=== PATIENT | female | born 1945 | race Caucasian/White ===

== ENCOUNTER 2017-08-19 08:16 | Outpatient (CLI) | payer MEDICARE, OTHER | END 2017-08-19 08:17 | disposition home or self-care (01) | LOC: DI 08:16 | PROVIDERS: ATTEND Internal Medicine | DX: I48.91 Unspecified atrial fibrillation (principal); I08.1 Rheumatic disorders of both mitral and tricuspid valves | CPT/HCPCS: 93306 ==

== ENCOUNTER 2017-11-04 14:26 | Outpatient (CLI) | payer MEDICARE, OTHER | END 2017-11-04 14:27 | disposition home or self-care (01) | LOC: LAB.F 14:26 → LAB 14:27 | PROVIDERS: ATTEND Nurse Practitioner Family | DX: I48.2 Chronic atrial fibrillation (principal) | CPT/HCPCS: 36415; 82565 ==

== ENCOUNTER 2017-11-24 09:05 | Outpatient (CLI) | payer MEDICARE, OTHER | END 2017-11-24 09:06 | disposition home or self-care (01) | LOC: LAB 09:05 | PROVIDERS: ATTEND Nurse Practitioner Family | DX: I48.2 Chronic atrial fibrillation (principal) | CPT/HCPCS: 85610 ==

== ENCOUNTER 2017-11-28 09:17 | Outpatient (CLI) | payer MEDICARE, OTHER | END 2017-11-28 09:18 | disposition home or self-care (01) | LOC: LAB 09:17 | PROVIDERS: ATTEND Nurse Practitioner Family | DX: I48.2 Chronic atrial fibrillation (principal) | CPT/HCPCS: 85610 ==

== ENCOUNTER 2017-12-02 15:03 | Outpatient (CLI) | payer MEDICARE, OTHER | END 2017-12-02 15:04 | disposition home or self-care (01) | LOC: LAB 15:03 | PROVIDERS: ATTEND Nurse Practitioner Family | DX: I48.2 Chronic atrial fibrillation (principal) | CPT/HCPCS: 85610 ==

== ENCOUNTER 2017-12-06 13:17 | Outpatient (CLI) | payer MEDICARE, OTHER | END 2017-12-06 13:18 | disposition home or self-care (01) | LOC: LAB 13:17 | PROVIDERS: ATTEND Nurse Practitioner Family | DX: I48.2 Chronic atrial fibrillation (principal) | CPT/HCPCS: 85610 ==

== ENCOUNTER 2017-12-09 10:24 | Outpatient (CLI) | payer MEDICARE, OTHER | END 2017-12-09 10:25 | disposition home or self-care (01) | LOC: LAB 10:24 | PROVIDERS: ATTEND Nurse Practitioner Family | DX: I48.2 Chronic atrial fibrillation (principal) | CPT/HCPCS: 85610 ==

== ENCOUNTER 2017-12-14 09:53 | Outpatient (CLI) | payer MEDICARE, OTHER | END 2017-12-14 09:54 | disposition home or self-care (01) | LOC: LAB 09:53 | PROVIDERS: ATTEND Nurse Practitioner Family | DX: I48.2 Chronic atrial fibrillation (principal) | CPT/HCPCS: 85610 ==

== ENCOUNTER 2017-12-20 09:57 | Outpatient (CLI) | payer MEDICARE, OTHER | END 2017-12-20 09:58 | disposition home or self-care (01) | LOC: LAB 09:57 | PROVIDERS: ATTEND Nurse Practitioner Family | DX: I48.2 Chronic atrial fibrillation (principal) | CPT/HCPCS: 85610 ==

== ENCOUNTER 2018-01-03 11:41 | Outpatient (CLI) | payer MEDICARE, OTHER | END 2018-01-03 11:42 | disposition home or self-care (01) | LOC: LAB 11:41 | PROVIDERS: ATTEND Nurse Practitioner Family | DX: I48.2 Chronic atrial fibrillation (principal) | CPT/HCPCS: 85610 ==

== ENCOUNTER 2018-01-17 11:21 | Outpatient (CLI) | payer MEDICARE, OTHER | END 2018-01-17 11:22 | disposition home or self-care (01) | LOC: LAB 11:21 | PROVIDERS: ATTEND Nurse Practitioner Family | DX: I48.2 Chronic atrial fibrillation (principal) | CPT/HCPCS: 85610 ==

== ENCOUNTER 2018-01-31 13:27 | Outpatient (CLI) | payer MEDICARE, OTHER | END 2018-01-31 13:28 | disposition home or self-care (01) | LOC: LAB 13:27 | PROVIDERS: ATTEND Nurse Practitioner Family | DX: I48.2 Chronic atrial fibrillation (principal) | CPT/HCPCS: 85610 ==

== ENCOUNTER 2018-02-14 13:02 | Outpatient (CLI) | payer MEDICARE, OTHER | END 2018-02-14 13:03 | disposition home or self-care (01) | LOC: LAB 13:02 | PROVIDERS: ATTEND Nurse Practitioner Family | DX: I48.2 Chronic atrial fibrillation (principal) | CPT/HCPCS: 85610 ==

== ENCOUNTER 2018-02-28 07:18 | Outpatient (CLI) | payer MEDICARE, OTHER | END 2018-02-28 07:19 | disposition home or self-care (01) | LOC: LAB 07:18 | PROVIDERS: ATTEND Nurse Practitioner Family | DX: I48.2 Chronic atrial fibrillation (principal) | CPT/HCPCS: 85610 ==

== ENCOUNTER 2018-03-14 11:44 | Outpatient (CLI) | payer MEDICARE, OTHER | END 2018-03-14 11:45 | disposition home or self-care (01) | LOC: LAB 11:44 | PROVIDERS: ATTEND Nurse Practitioner Family | DX: I48.2 Chronic atrial fibrillation (principal) | CPT/HCPCS: 85610 ==

== ENCOUNTER 2018-03-28 12:47 | Outpatient (CLI) | payer MEDICARE, OTHER | END 2018-03-28 12:48 | disposition home or self-care (01) | LOC: LAB 12:47 | PROVIDERS: ATTEND Nurse Practitioner Family | DX: I48.2 Chronic atrial fibrillation (principal) | CPT/HCPCS: 85610 ==

== ENCOUNTER 2018-04-18 09:34 | Outpatient (CLI) | payer MEDICARE, OTHER | END 2018-04-18 09:35 | disposition home or self-care (01) | LOC: LAB 09:34 | PROVIDERS: ATTEND Nurse Practitioner Family | DX: I48.2 Chronic atrial fibrillation (principal) | CPT/HCPCS: 85610 ==

== ENCOUNTER 2018-06-06 11:26 | Outpatient (CLI) | payer MEDICARE, OTHER ==
[2018-06-06 12:18] LABS: PT - PROTHROMBIN TIME 32.7 secs (9.9-12.6)
== END 2018-06-06 11:27 | disposition home or self-care (01) ==
LOC: LAB 11:26
PROVIDERS: ATTEND Nurse Practitioner Family
DX: I48.2 Chronic atrial fibrillation (principal)
CPT/HCPCS: 36415; 85610

== ENCOUNTER 2018-07-04 11:59 | Outpatient (CLI) | payer MEDICARE, OTHER | END 2018-07-04 12:00 | disposition home or self-care (01) | LOC: LAB 11:59 | PROVIDERS: ATTEND Nurse Practitioner Family | DX: I48.2 Chronic atrial fibrillation (principal) | CPT/HCPCS: 85610 ==

== ENCOUNTER 2018-07-24 10:38 | Outpatient (CLI) | payer MEDICARE, OTHER | END 2018-07-24 10:39 | disposition home or self-care (01) | LOC: LAB 10:38 | PROVIDERS: ATTEND Nurse Practitioner Family | DX: I48.2 Chronic atrial fibrillation (principal) | CPT/HCPCS: 85610 ==

== ENCOUNTER 2018-08-07 12:12 | Outpatient (CLI) | payer MEDICARE, OTHER | END 2018-08-07 12:13 | disposition home or self-care (01) | LOC: LAB 12:12 | PROVIDERS: ATTEND Nurse Practitioner Family | DX: I48.2 Chronic atrial fibrillation (principal) | CPT/HCPCS: 85610 ==

== ENCOUNTER 2018-08-21 14:25 | Outpatient (CLI) | payer MEDICARE, OTHER | END 2018-08-21 14:26 | disposition home or self-care (01) | LOC: LAB 14:25 | PROVIDERS: ATTEND Nurse Practitioner Family | DX: I48.2 Chronic atrial fibrillation (principal) | CPT/HCPCS: 85610 ==

== ENCOUNTER 2018-09-18 11:33 | Outpatient (CLI) | payer MEDICARE, OTHER | END 2018-09-18 11:34 | disposition home or self-care (01) | LOC: LAB 11:33 | PROVIDERS: ATTEND Nurse Practitioner Family | DX: I48.2 Chronic atrial fibrillation (principal) | CPT/HCPCS: 85610 ==

== ENCOUNTER 2018-10-16 08:27 | Outpatient (CLI) | payer MEDICARE, OTHER | END 2018-10-16 08:28 | disposition home or self-care (01) | LOC: LAB 08:27 | PROVIDERS: ATTEND Nurse Practitioner Family | DX: I48.2 Chronic atrial fibrillation (principal) | CPT/HCPCS: 85610 ==

== ENCOUNTER 2018-11-14 14:58 | Outpatient (CLI) | payer MEDICARE, OTHER | END 2018-11-14 14:59 | disposition home or self-care (01) | LOC: LAB 14:58 | PROVIDERS: ATTEND Nurse Practitioner Family | DX: I48.2 Chronic atrial fibrillation (principal) | CPT/HCPCS: 85610 ==

== ENCOUNTER 2018-11-28 09:26 | Outpatient (CLI) | payer MEDICARE, OTHER | END 2018-11-28 09:27 | disposition home or self-care (01) | LOC: LAB 09:26 | PROVIDERS: ATTEND Internal Medicine | DX: I48.2 Chronic atrial fibrillation (principal) | CPT/HCPCS: 85610 ==

== ENCOUNTER 2018-12-26 09:26 | Outpatient (CLI) | payer MEDICARE, OTHER | END 2018-12-26 09:27 | disposition home or self-care (01) | LOC: LAB 09:26 | PROVIDERS: ATTEND Internal Medicine | DX: I48.2 Chronic atrial fibrillation (principal) | CPT/HCPCS: 85610 ==

== ENCOUNTER 2019-01-30 11:17 | Outpatient (CLI) | payer MEDICARE, OTHER | END 2019-01-30 11:18 | disposition home or self-care (01) | LOC: LAB 11:17 | PROVIDERS: ATTEND Internal Medicine | DX: I48.2 Chronic atrial fibrillation (principal) | CPT/HCPCS: 85610 ==

== ENCOUNTER 2019-03-13 08:52 | Outpatient (CLI) | payer MEDICARE, OTHER | END 2019-03-13 08:53 | disposition home or self-care (01) | LOC: LAB 08:52 | PROVIDERS: ATTEND Internal Medicine | DX: I48.2 Chronic atrial fibrillation (principal) | CPT/HCPCS: 85610 ==

== ENCOUNTER 2019-04-17 08:52 | Outpatient (CLI) | payer MEDICARE, OTHER | END 2019-04-17 08:53 | disposition home or self-care (01) | LOC: LAB 08:52 | PROVIDERS: ATTEND Internal Medicine | DX: I48.2 Chronic atrial fibrillation (principal) | CPT/HCPCS: 85610 ==

== ENCOUNTER 2019-05-28 14:56 | Outpatient (CLI) | payer MEDICARE, OTHER | END 2019-05-28 14:57 | disposition home or self-care (01) | LOC: LAB 14:56 | PROVIDERS: ATTEND Internal Medicine | DX: I48.20 Chronic atrial fibrillation, unspecified (principal) | CPT/HCPCS: 85610 ==

== ENCOUNTER 2019-06-18 15:36 | Outpatient (CLI) | payer MEDICARE, OTHER | END 2019-06-18 15:37 | disposition home or self-care (01) | LOC: LAB 15:36 | PROVIDERS: ATTEND Internal Medicine | DX: I48.21 Permanent atrial fibrillation (principal) | CPT/HCPCS: 85610 ==

== ENCOUNTER 2019-07-24 11:18 | Outpatient (CLI) | payer MEDICARE, OTHER | END 2019-07-24 11:19 | disposition home or self-care (01) | LOC: LAB 11:18 | PROVIDERS: ATTEND Internal Medicine | DX: I48.21 Permanent atrial fibrillation (principal) | CPT/HCPCS: 85610 ==

== ENCOUNTER 2019-08-28 13:33 | Outpatient (CLI) | payer MEDICARE, OTHER | END 2019-08-28 13:34 | disposition home or self-care (01) | LOC: LAB 13:33 | PROVIDERS: ATTEND Internal Medicine | DX: I48.21 Permanent atrial fibrillation (principal) | CPT/HCPCS: 85610 ==

== ENCOUNTER 2019-10-02 13:48 | Outpatient (CLI) | payer MEDICARE, OTHER | END 2019-10-02 13:49 | disposition home or self-care (01) | LOC: LAB 13:48 | PROVIDERS: ATTEND Internal Medicine | DX: I48.21 Permanent atrial fibrillation (principal) | CPT/HCPCS: 85610 ==

== ENCOUNTER 2019-11-13 11:54 | Outpatient (CLI) | payer MEDICARE, OTHER | END 2019-11-13 11:55 | disposition home or self-care (01) | LOC: LAB 11:54 | PROVIDERS: ATTEND Internal Medicine | DX: I48.21 Permanent atrial fibrillation (principal) | CPT/HCPCS: 85610 ==

== ENCOUNTER 2019-12-25 15:26 | Outpatient (CLI) | payer MEDICARE, OTHER | END 2019-12-25 15:27 | disposition home or self-care (01) | LOC: LAB 15:26 | PROVIDERS: ATTEND Internal Medicine | DX: I48.21 Permanent atrial fibrillation (principal) | CPT/HCPCS: 85610 ==

== ENCOUNTER 2020-02-05 12:05 | Outpatient (CLI) | payer MEDICARE, OTHER | END 2020-02-05 12:06 | disposition home or self-care (01) | LOC: LAB 12:05 | PROVIDERS: ATTEND Internal Medicine | DX: I48.21 Permanent atrial fibrillation (principal) | CPT/HCPCS: 85610 ==

== ENCOUNTER 2020-03-20 15:03 | Outpatient (CLI) | payer MEDICARE, OTHER | END 2020-03-20 15:04 | disposition home or self-care (01) | LOC: LAB 15:03 | PROVIDERS: ATTEND Internal Medicine | DX: I48.21 Permanent atrial fibrillation (principal) | CPT/HCPCS: 85610 ==

== ENCOUNTER 2020-04-10 13:58 | Outpatient (CLI) | payer MEDICARE, OTHER | END 2020-04-10 13:59 | disposition home or self-care (01) | LOC: LAB 13:58 | PROVIDERS: ATTEND Internal Medicine | DX: I48.21 Permanent atrial fibrillation (principal) | CPT/HCPCS: 85610 ==

== ENCOUNTER 2020-05-22 14:30 | Outpatient (CLI) | payer MEDICARE, OTHER | END 2020-05-22 14:31 | disposition home or self-care (01) | LOC: LAB 14:30 | PROVIDERS: ATTEND Internal Medicine | DX: I48.21 Permanent atrial fibrillation (principal) | CPT/HCPCS: 85610 ==

== ENCOUNTER 2020-06-26 08:23 | Outpatient (CLI) | payer MEDICARE, OTHER | END 2020-06-26 08:24 | disposition home or self-care (01) | LOC: LAB 08:23 | PROVIDERS: ATTEND Internal Medicine | DX: I48.21 Permanent atrial fibrillation (principal) | CPT/HCPCS: 85610 ==

== ENCOUNTER 2020-08-07 09:09 | Outpatient (CLI) | payer MEDICARE, OTHER | END 2020-08-07 09:10 | disposition home or self-care (01) | LOC: LAB 09:09 | PROVIDERS: ATTEND Internal Medicine | DX: I48.21 Permanent atrial fibrillation (principal) | CPT/HCPCS: 85610 ==

== ENCOUNTER 2020-09-18 08:22 | Outpatient (CLI) | payer MEDICARE | END 2020-09-18 08:23 | disposition home or self-care (01) | LOC: LAB 08:22 | PROVIDERS: ATTEND Internal Medicine | DX: I48.21 Permanent atrial fibrillation (principal) | CPT/HCPCS: 85610 ==

== ENCOUNTER 2020-10-30 09:42 | Outpatient (CLI) | payer MEDICARE | END 2020-10-30 09:43 | disposition home or self-care (01) | LOC: LAB 09:42 | PROVIDERS: ATTEND Internal Medicine | DX: I48.21 Permanent atrial fibrillation (principal) | CPT/HCPCS: 85610 ==

== ENCOUNTER 2020-11-21 10:08 | Emergency (ER) | payer MEDICARE ==
--- NOTE | 2020-11-21 10:20 | ED Physician Documentation ---
PD HPI LOWER EXT INJURY - Stated complaint Stated Complaint: R ANKLE INJ - History obtained from History obtained from: Patient - History of Present Illness PD HPI LOW EXT INJURY LOCATION: Right, Ankle, Foot Type of injury: No: Fall, Twist Where injury occurred: Home Timing - onset: How many days ago (4) Timing - duration: Days (4) Timing - details: Gradual onset, Still present, Waxing and waning Improved by: Rest Worsened by: Palpating, Other (walking movement) Associated symptoms: Swelling, Discolored (mildly red base of great toe dorally). No: Weakness, Numbness Similar symptoms before: Has not had sx before Review of Systems Constitutional: denies: Fever, Chills Nose: denies: Rhinorrhea / runny nose, Congestion Throat: denies: Sore throat Respiratory: denies: Cough Skin: reports: Lesions (has corns on 4th toe and callous plantar first MTP head area chronically.). denies: Rash, Abrasion (s), Laceration (s) Musculoskeletal: denies: Neck pain, Back pain Neurologic: denies: Generalized weakness, Focal weakness, Numbness PD PAST MEDICAL HISTORY - Past Medical History Cardiovascular: None Musculoskeletal: Osteoarthritis - Present Medications Home Medications: Ambulatory Orders Medication Instructions Recorded Confirmed Diltiazem HCl [Cardizem Cd] 360 mg PO DAILY 11/21/20 11/21/20 HYDROcod/ACETAM 5/325 [Berthold 5/325] 1 ea PO Q6H PRN #12 tablet 11/21/20 Metoprolol Succinate [Kapspargo 100 mg PO BID 11/21/20 11/21/20 Sprinkle] Nystatin 1 applic TP BID 7 Days #15 gm 11/21/20 Triamterene/Hydrochlorothiazid 1 tab PO DAILY 11/21/20 11/21/20 [Triamterene-Hctz 37.5-25 mg Tb] Warfarin [Coumadin] 5 mg PO DAILY 11/21/20 11/21/20 dexAMETHasone [Decadron] 4 mg PO DAILY #7 tablet 11/21/20 - Allergies Allergies/Adverse Reactions: Allergies Allergy/AdvReac Type Severity Reaction Status Date / Time No Known Drug Allergies Allergy Verified 11/21/20 10:16 PD ED PE NORMAL - Vitals Vital signs reviewed: Yes - General General: Alert and oriented X 3, No acute distress, Well developed/nourished - Derm Derm: Normal color, Warm and dry - Extremities Extremities: No edema, No calf tenderness / cord, Other (dorsum right foot at MTP with mild redness and moderate tenderness. corn with hyperkeratin dorsuym 4th toe and plantar first MT head. There is some skin excoriation without signs of infection between all the toes with faint redness c/w tinea. Does not seem to connect with redness area dorsum foot) - Neuro Neuro: Alert and oriented X 3, No motor deficit, No sensory deficit, Normal speech Results - Vitals Vitals: Vital Signs - 24 hr 11/21/20 10:18 Temperature 36.4 C L Heart Rate 85 Respiratory 18 Rate Blood Pressure 105/76 O2 Saturation 99 Oxygen O2 Source Room air - Labs Labs: Laboratory Tests 11/21/20 10:47 INR (Fingerstick) 1.9 H - Rads (name of study) right foot Radiology: Prelim report reviewed (arthritic, no fractures. valgus deviation of great toe. ), See rad report PD MEDICAL DECISION MAKING - ED course Complexity details: considered differential (clinically seems like gout. Could be inflammatory arthritis of other sort. Does not seem cellulitic. ), d/w patient Departure - Departure Disposition: 01 Home, Self Care Clinical Impression: Foot pain, right, Arthritis of foot Tinea pedis Qualifiers: Laterality: right Qualified Code(s): B35.3 - Tinea pedis Condition: Stable Record reviewed to determine appropriate education?: Yes Prescriptions: dexAMETHasone [Decadron] 4 mg PO DAILY #7 tablet HYDROcod/ACETAM 5/325 [Berthold 5/325] 1 ea PO Q6H PRN #12 tablet PRN Reason: Pain Nystatin 1 applic TP BID 7 Days #15 gm Comments: Your x-ray of the foot shows the arthritic changes in the joint deviation. No signs of fractures. I think the pain and redness are from an inflammatory arthritis or possibly gout. This would get treated with a steroid anti-inflammatory so as not to interfere with your Coumadin. You can add Tylenol 4 times a day for pain or hydrocodone if needed for worse pain. He also have what looks like a yeast infection between the toes and I would suggest some nystatin cream once or twice daily to treat that. Recheck if not improved well over the next few days. Discharge Date/Time: 11/21/20 11:18
[2020-11-21 10:31] VITALS: BP 105/76
--- OUTSIDE RECORDS SUMMARY | 2020-11-21 10:33 | EXTERNAL MEDICAL SUMMARY RPT | Continuity of Care Document ---
:1945 Demographics Phone Unavailable Preferred Language Unknown Marital Status Unknown Cheondoism Affiliation Unknown Race Unknown Ethnic Group Unknown Author Organization [facility] Address [address] [phone] Phone Social History date description facility [id number]
[2020-11-21] MEDS ORDERED: CHERRY SYRUP 10 ML UDC PO ONE (10:37)
[2020-11-21] MEDS ORDERED: DEXAMETHASONE 10 MG/ML VIAL PO STA (10:37)
[2020-11-21] MEDS ORDERED: ACETAMINOPHEN 325 MG TABLET PO STA (10:37)
--- NOTE | 2020-11-21 11:02 | XRAY Report ---
PROCEDURE: Foot 3 View RT INDICATIONS: pain great toe base for a week TECHNIQUE: 3 views of the foot were acquired. COMPARISON: None FINDINGS: No acute fracture identified. Severe first MTP degenerative joint disease. Diffuse interphalangeal an d lesser MTP osteoarthritis. Midfoot joint degeneration also noted. There is hallux valgus appearance of the weightbearing views would be more specific. Evaluation of the MTP joints not well seen second tiffany to positioning. Soft tissues: No tibiotalar joint effusion. Achilles tendon appears normal. IMPRESSION: Severe diffuse right foot joint degeneration. Hallux valgus on weightbearing views of the more specific. Reviewed by: Bridger Vizcarra MD on 11/21/2020 11:00 AM PDT Approved by: Bridger Vizcarra MD on 11/21/2020 11:00 AM PDT Station ID: [id number]
== END 2020-11-21 11:18 | disposition home or self-care (01) ==
LOC: ED 10:08
DX: M19.071 Primary osteoarthritis, right ankle and foot (principal); B35.3 Tinea pedis
CPT/HCPCS: 36416; 73630; 85610; 99283; A9270

== ENCOUNTER 2020-12-11 08:23 | Outpatient (CLI) | payer MEDICARE | END 2020-12-11 08:24 | disposition home or self-care (01) | LOC: LAB 08:23 | PROVIDERS: ATTEND Internal Medicine | DX: I48.21 Permanent atrial fibrillation (principal) | CPT/HCPCS: 36416; 85610 ==

== ENCOUNTER 2021-01-30 07:35 | Outpatient (CLI) | payer MEDICARE | END 2021-01-30 07:36 | disposition home or self-care (01) | LOC: LAB 07:35 | PROVIDERS: ATTEND Internal Medicine | DX: I48.21 Permanent atrial fibrillation (principal) | CPT/HCPCS: 36416; 85610 ==

== ENCOUNTER 2021-03-12 08:39 | Outpatient (CLI) | payer MEDICARE | END 2021-03-12 08:40 | disposition home or self-care (01) | LOC: LAB 08:39 | PROVIDERS: ATTEND Internal Medicine | DX: I48.21 Permanent atrial fibrillation (principal) | CPT/HCPCS: 36416; 85610 ==

== ENCOUNTER 2021-04-23 08:01 | Outpatient (CLI) | payer MEDICARE | END 2021-04-23 08:02 | disposition home or self-care (01) | LOC: LAB 08:01 | PROVIDERS: ATTEND Internal Medicine | DX: I48.21 Permanent atrial fibrillation (principal) | CPT/HCPCS: 36416; 85610 ==

== ENCOUNTER 2021-06-04 09:23 | Outpatient (CLI) | payer MEDICARE | END 2021-06-04 09:24 | disposition home or self-care (01) | LOC: LAB 09:23 | PROVIDERS: ATTEND Internal Medicine | DX: I48.21 Permanent atrial fibrillation (principal) | CPT/HCPCS: 36416; 85610 ==

== ENCOUNTER 2021-07-02 09:53 | Outpatient (CLI) | payer MEDICARE | END 2021-07-02 09:54 | disposition home or self-care (01) | LOC: LAB 09:53 | PROVIDERS: ATTEND Internal Medicine | DX: I48.21 Permanent atrial fibrillation (principal) | CPT/HCPCS: 36416; 85610 ==

== ENCOUNTER 2021-08-13 09:03 | Outpatient (CLI) | payer OTHER | END 2021-08-13 09:04 | disposition home or self-care (01) | LOC: LAB 09:03 | PROVIDERS: ATTEND Internal Medicine | DX: I48.21 Permanent atrial fibrillation (principal) | CPT/HCPCS: 36416; 85610 ==

== ENCOUNTER 2021-09-24 08:32 | Outpatient (CLI) | payer MEDICARE, OTHER | END 2021-09-24 08:33 | disposition home or self-care (01) | LOC: LAB 08:32 | PROVIDERS: ATTEND Internal Medicine | DX: I48.21 Permanent atrial fibrillation (principal) | CPT/HCPCS: 36416; 85610 ==

== ENCOUNTER 2021-11-05 08:53 | Outpatient (CLI) | payer MEDICARE | END 2021-11-05 08:54 | disposition home or self-care (01) | LOC: LAB 08:53 | PROVIDERS: ATTEND Internal Medicine | DX: I48.21 Permanent atrial fibrillation (principal) | CPT/HCPCS: 36416; 85610 ==

== ENCOUNTER 2022-01-01 10:29 | Outpatient (CLI) | payer MEDICARE | END 2022-01-01 10:30 | disposition home or self-care (01) | LOC: LAB 10:29 | PROVIDERS: ATTEND Internal Medicine | DX: I48.21 Permanent atrial fibrillation (principal) | CPT/HCPCS: 36416; 85610 ==

== ENCOUNTER 2022-02-12 08:29 | Outpatient (CLI) | payer MEDICARE | END 2022-02-12 08:30 | disposition home or self-care (01) | LOC: LAB 08:29 | PROVIDERS: ATTEND Internal Medicine | DX: I48.21 Permanent atrial fibrillation (principal) | CPT/HCPCS: 36416; 85610 ==

== ENCOUNTER 2022-04-15 10:51 | Outpatient (CLI) | payer MEDICARE | END 2022-04-15 10:52 | disposition home or self-care (01) | LOC: LAB 10:51 | PROVIDERS: ATTEND Internal Medicine | DX: I48.21 Permanent atrial fibrillation (principal) | CPT/HCPCS: 36416; 85610 ==

== ENCOUNTER 2022-05-17 09:32 | Outpatient (CLI) | payer MEDICARE | END 2022-05-17 09:33 | disposition home or self-care (01) | LOC: LAB 09:32 | PROVIDERS: ATTEND Internal Medicine | DX: I48.21 Permanent atrial fibrillation (principal) | CPT/HCPCS: 36416; 85610 ==

== ENCOUNTER 2022-06-07 08:28 | Outpatient (CLI) | payer MEDICARE | END 2022-06-07 08:29 | disposition home or self-care (01) | LOC: LAB 08:28 | PROVIDERS: ATTEND Internal Medicine | DX: I48.21 Permanent atrial fibrillation (principal) | CPT/HCPCS: 36416; 85610 ==

== ENCOUNTER 2022-07-09 10:48 | Outpatient (CLI) | payer MEDICARE | END 2022-07-09 10:49 | disposition home or self-care (01) | LOC: LAB 10:48 | PROVIDERS: ATTEND Internal Medicine | DX: I48.21 Permanent atrial fibrillation (principal) | CPT/HCPCS: 36416; 85610 ==

== ENCOUNTER 2022-08-06 08:38 | Outpatient (CLI) | payer MEDICARE | END 2022-08-06 08:39 | disposition home or self-care (01) | LOC: LAB 08:38 | PROVIDERS: ATTEND Internal Medicine | DX: I48.21 Permanent atrial fibrillation (principal) | CPT/HCPCS: 36416; 85610 ==

== ENCOUNTER 2022-09-22 08:33 | Outpatient (CLI) | payer MEDICARE | END 2022-09-22 08:34 | disposition home or self-care (01) | LOC: LAB 08:33 | PROVIDERS: ATTEND Internal Medicine | DX: I48.21 Permanent atrial fibrillation (principal) | CPT/HCPCS: 36416; 85610 ==

== ENCOUNTER 2022-10-21 08:15 | Outpatient (CLI) | payer MEDICARE | END 2022-10-21 08:16 | disposition home or self-care (01) | LOC: LAB 08:15 | PROVIDERS: ATTEND Internal Medicine | DX: I48.21 Permanent atrial fibrillation (principal) | CPT/HCPCS: 36416; 85610 ==

== ENCOUNTER 2022-12-02 15:18 | Outpatient (CLI) | payer MEDICARE ==
[2022-12-02 16:08] LABS: CREATININE 1.4 mg/dL (0.4-1.0); PHOSPHORUS 4.5 mg/dL (2.5-4.6)
[2022-12-02 16:11] LABS: CREATININE,URINE 157.4 mg/dL; PROTEIN/CREATININE RATIO,URINE 0.1 (<=0.2)
== END 2022-12-02 15:19 | disposition home or self-care (01) ==
LOC: LAB 15:18
PROVIDERS: ATTEND Internal Medicine
DX: I48.21 Permanent atrial fibrillation (principal); N05.9 Unspecified nephritic syndrome with unspecified morphologic changes; E83.30 Disorder of phosphorus metabolism, unspecified; N25.81 Secondary hyperparathyroidism of renal origin; R80.9 Proteinuria, unspecified
CPT/HCPCS: 36415; 82565; 82570; 83970; 84100; 84156; 85610

== ENCOUNTER 2022-12-21 19:00 | Outpatient (CLI) | payer MEDICARE ==
--- NOTE | 2022-12-22 11:29 | XRAY Report ---
PROCEDURE: Chest 2 View X-Ray INDICATIONS: AFIB, DYSPNEA TECHNIQUE: 2 views of the chest were acquired. COMPARISON: None. FINDINGS: Surgical changes and devices: None. Lungs and pleura: No pleural effusions or pneumothorax. Lungs are clear. Mediastinum: Mediastinal contours appear normal. Heart size is enlarged. Large hiatal hernia. Bones and chest wall: No suspicious bony lesions. Overlying soft tissues appear unremarkable. IMPRESSION: No acute findings explaining the patient's dyspnea. Large hiatal hernia. Reviewed by: Maco Bustamante on 12/22/2022 11:27 AM PDT Approved by: Maco Bustamante on 12/22/2022 11:27 AM PDT Station ID: [id number]
== END 2022-12-21 19:01 | disposition home or self-care (01) ==
LOC: DI 19:00
PROVIDERS: ATTEND Internal Medicine
DX: R06.00 Dyspnea, unspecified (principal); I48.91 Unspecified atrial fibrillation; K44.9 Diaphragmatic hernia without obstruction or gangrene; N18.32 Chronic kidney disease, stage 3b

== ENCOUNTER 2022-12-21 19:03 | Outpatient (CLI) | payer MEDICARE ==
--- NOTE | 2022-12-22 10:49 | Ultrasound Report ---
PROCEDURE: Retroperitoneal INDICATIONS: KIDNEY DISEASE TECHNIQUE: Real-time scanning was performed of the retroperitoneal organs, with image documentation. COMPARISON: None. FINDINGS: Kidneys: Kidneys are small in size. Right kidney measures 8.8 cm long; left kidney measures 8.7 cm long. Right renal cortical thickness is 1.1 cm; left renal cortical thickness is 1.1 cm. Echogenic renal parenchyma bilaterally. A few tiny nonshadowing echogenic foci noted in the bilateral kidney po ssibly representing nonobstructive renal stones. No solid masses, or hydronephrosis. Incidental note of a simple cyst in the upper pole of the left kidney measuring 1.8 cm. Bladder: Pre-void bladder volume is 109.5 mL. Post-void residual is 3.8 mL. Pre-void images demons trate no intraluminal masses or stones. On pre-void images, bilateral ureteral jets were not visuali zed with color Doppler interrogation. (Of note, ureteral jets may not be detectable in up to 25% of cases due to insufficient differences in specific gravity between ureteral and bladder urine). Miscellaneous: No free abdominal fluid. IMPRESSION: Mild bilateral renal atrophy with findings compatible with chronic medical renal disease. Tiny echoge doreen foci in the bilateral kidneys possibly representing nonobstructing renal stones. No hydronephrosi s. Reviewed by: Maycol Staples MD on 12/22/2022 10:48 AM PDT Approved by: Maycol Staples MD on 12/22/2022 10:48 AM PDT Station ID: [id number]
== END 2022-12-21 19:04 | disposition home or self-care (01) ==
LOC: DI 19:03
PROVIDERS: ATTEND Internal Medicine Nephrology
DX: N18.32 Chronic kidney disease, stage 3b (principal)

== ENCOUNTER 2023-01-13 08:00 | Outpatient (CLI) | payer MEDICARE | END 2023-01-13 23:59 | disposition home or self-care (01) | LOC: LAB 08:00 | PROVIDERS: ATTEND Internal Medicine | DX: I48.21 Permanent atrial fibrillation (principal) | CPT/HCPCS: 36416; 85610 ==

== ENCOUNTER 2023-01-13 13:39 | Outpatient (CLI) | payer MEDICARE ==
--- NOTE | 2023-01-14 12:38 | Mammography Report ---
BILATERAL DIGITAL SCREENING MAMMOGRAM 3D/2D: 01/13/2023 CLINICAL: Baseline exam. Routine screening. No prior exams were available for comparison. There are scattered areas of fibroglandular density in both breasts (category b / 25%-50% glandular t issue). There is a possible oval equal density asymmetry in the right breast middle depth superior region see n on the mediolateral oblique view only. There is a possible oval asymmetry in the left breast middle depth central to the nipple seen on the craniocaudal view only. No other significant masses or calcifications are seen in either breast. IMPRESSION: INCOMPLETE: NEEDS ADDITIONAL IMAGING EVALUATION The possible oval equal density asymmetry in the right breast middle depth superior region seen on th e mediolateral oblique view only is indeterminate. Additional views with possible ultrasound are rec ommended. The possible oval asymmetry in the left breast middle depth central to the nipple seen on the cranioc audal view only is indeterminate. Additional views with possible ultrasound are recommended. Based on the Tyrer Cuzick model (a risk assessment model) the patients lifetime risk is 1.9% and her 10 year risk is 0.0%. According to the ACR, ACS, and NCCN guidelines, an annual breast MRI exam louie g with mammogram is recommended if the patients lifetime risk is 20% or greater. This exam was interpreted at Station ID: [id number]. NOTE: For mammograms, a report in lay terms will be sent to the patient. Approximately 15% of breast malignancies will not be visualized mammographically. In the management of a palpable breast mass, a negative mammogram must not discourage biopsy of a clinically suspicious lesion. Electronically Signed By: Maycol Staples M.D. aty/:01/13/2023 18:15:24 ACR BI-RADS Category 0: Incomplete 3340F PARENCHYMAL PATTERN: (A) - The breast(s) demonstrate(s) scattered fibroglandular densities. BI-RADS CATEGORY: (0) - 0 Mammo and [place] [id number] Immediate follow-up LATERALITY: (B)
== END 2023-01-13 13:40 | disposition home or self-care (01) ==
LOC: DI 13:39
PROVIDERS: ATTEND Internal Medicine
DX: Z12.31 Encounter for screening mammogram for malignant neoplasm of breast (principal); R92.8 Other abnormal and inconclusive findings on diagnostic imaging of breast

== ENCOUNTER 2023-02-15 12:22 | Outpatient (CLI) | payer MEDICARE | END 2023-02-15 12:23 | disposition home or self-care (01) | LOC: DI 12:22 | PROVIDERS: ATTEND Internal Medicine | DX: I50.9 Heart failure, unspecified (principal); I34.0 Nonrheumatic mitral (valve) insufficiency | CPT/HCPCS: 93306 ==

== ENCOUNTER 2023-02-24 14:59 | Outpatient (CLI) | payer MEDICARE | END 2023-02-24 15:00 | disposition home or self-care (01) | LOC: LAB 14:59 | PROVIDERS: ATTEND Internal Medicine | DX: I48.21 Permanent atrial fibrillation (principal) | CPT/HCPCS: 36416; 85610 ==

== ENCOUNTER 2023-04-04 13:27 | Outpatient (CLI) | payer MEDICARE ==
[2023-04-04 13:39] LABS: BASOPHILS % (AUTO) 0.6 %; EOSINOPHILS # (AUTO) 0.1 10^3/uL (0.0-0.7); EOSINOPHILS % (AUTO) 1.5 %; HCT - HEMATOCRIT 40.3 % (37.0-47.0); LYMPHOCYTES # (AUTO) 1.8 10^3/uL (1.5-3.5); LYMPHOCYTES % (AUTO) 24.9 %; MEAN CORPUSCULAR HEMOGLOBIN 30.7 pg (27.0-31.0); MEAN CORPUSCULAR HGB CONC 32.3 g/dL (32.0-36.0); MEAN CORPUSCULAR VOLUME 95.3 fL (81.0-99.0); MEAN PLATELET VOLUME 9.6 fL (7.9-10.8); MONOCYTES # (AUTO) 0.8 10^3/uL (0.0-1.0); MONOCYTES % (AUTO) 11.6 %; NEUTROPHILS # (AUTO) 4.4 10^3/uL (1.5-6.6); NEUTROPHILS % (AUTO) 61.1 %; PLT - PLATELET COUNT 362 10^3/uL (130-450); RED BLOOD COUNT 4.23 10^6/uL (4.20-5.40); RED CELL DISTRIBUTION WIDTH 17.6 % (12.0-15.0); WHITE BLOOD COUNT 7.2 x10^3/uL (4.8-10.8)
[2023-04-04 13:56] LABS: CALCIUM 9.5 mg/dL (8.5-10.3); CREATININE 1.3 mg/dL (0.6-1.3); POTASSIUM 3.8 mmol/L (3.5-4.5)
[2023-04-04 16:40] LABS: FERRITIN 26.6 ng/mL (11.0-306.8)
== END 2023-04-04 13:28 | disposition home or self-care (01) ==
LOC: LAB 13:27
PROVIDERS: ATTEND Internal Medicine Nephrology
DX: E11.9 Type 2 diabetes mellitus without complications (principal); N05.9 Unspecified nephritic syndrome with unspecified morphologic changes; D70.9 Neutropenia, unspecified; D63.1 Anemia in chronic kidney disease; D50.0 Iron deficiency anemia secondary to blood loss (chronic); D51.9 Vitamin B12 deficiency anemia, unspecified
CPT/HCPCS: 36415; 80048; 82607; 82728; 82746; 83540; 84466; 85025

== ENCOUNTER 2023-04-08 15:17 | Outpatient (CLI) | payer MEDICARE | END 2023-04-08 15:18 | disposition home or self-care (01) | LOC: LAB 15:17 | PROVIDERS: ATTEND Internal Medicine | DX: I48.21 Permanent atrial fibrillation (principal) | CPT/HCPCS: 36416; 85610 ==

== ENCOUNTER 2023-05-27 08:18 | Outpatient (CLI) | payer MEDICARE | END 2023-05-27 08:19 | disposition home or self-care (01) | LOC: LAB 08:18 | PROVIDERS: ATTEND Internal Medicine | DX: I48.21 Permanent atrial fibrillation (principal) | CPT/HCPCS: 36415; 36416; 85610 ==

== ENCOUNTER 2023-06-24 16:19 | Outpatient (CLI) | payer MEDICARE | END 2023-06-24 16:20 | disposition home or self-care (01) | LOC: LAB 16:19 | PROVIDERS: ATTEND Internal Medicine | DX: I48.21 Permanent atrial fibrillation (principal) | CPT/HCPCS: 36416; 85610 ==

== ENCOUNTER 2023-07-27 14:45 | Outpatient (CLI) | payer MEDICARE | END 2023-07-27 14:46 | disposition home or self-care (01) | LOC: LAB 14:45 | PROVIDERS: ATTEND Internal Medicine | DX: I48.21 Permanent atrial fibrillation (principal) | CPT/HCPCS: 36416; 85610 ==

== ENCOUNTER 2023-08-24 08:44 | Outpatient (CLI) | payer MEDICARE | END 2023-08-24 08:45 | disposition home or self-care (01) | LOC: LAB 08:44 | PROVIDERS: ATTEND Internal Medicine | DX: I48.21 Permanent atrial fibrillation (principal) | CPT/HCPCS: 36416; 85610 ==

== ENCOUNTER 2023-09-22 08:09 | Outpatient (CLI) | payer MEDICARE | END 2023-09-22 08:10 | disposition home or self-care (01) | LOC: LAB 08:09 | PROVIDERS: ATTEND Internal Medicine | DX: I48.21 Permanent atrial fibrillation (principal) | CPT/HCPCS: 36416; 85610 ==

== ENCOUNTER 2023-10-20 08:09 | Outpatient (CLI) | payer MEDICARE | END 2023-10-20 08:10 | disposition home or self-care (01) | LOC: LAB 08:09 | PROVIDERS: ATTEND Internal Medicine | DX: I48.21 Permanent atrial fibrillation (principal) | CPT/HCPCS: 36416; 85610 ==

== ENCOUNTER 2023-12-04 23:41 | Outpatient (CLI) | payer MEDICARE | END 2023-12-04 23:59 | disposition critical access hospital (66) | LOC: EMS 23:41 | DX: I95.1 Orthostatic hypotension (principal); R19.7 Diarrhea, unspecified; R42 Dizziness and giddiness; R11.0 Nausea; R63.1 Polydipsia | CPT/HCPCS: A0425; A0427 ==

== ENCOUNTER 2023-12-04 23:48 | Emergency (ER) | payer MEDICARE ==
[2023-12-05] MEDS: SODIUM CHLORIDE 0.9% 1,000 ML IV STA ×2 (00:16→03:01)
[2023-12-05 00:30] LABS: BASOPHILS % (AUTO) 0.2 %; HCT - HEMATOCRIT 41.9 % (37.0-47.0); HGB - HEMOGLOBIN 13.8 g/dL (12.0-16.0); MEAN CORPUSCULAR HEMOGLOBIN 31.7 pg (27.0-31.0); MEAN CORPUSCULAR HGB CONC 32.9 g/dL (32.0-36.0); MEAN CORPUSCULAR VOLUME 96.3 fL (81.0-99.0); MEAN PLATELET VOLUME 10.7 fL (7.9-10.8); NEUTROPHILS # (AUTO) 2.4 10^3/uL (1.5-6.6); NEUTROPHILS % (AUTO) 53.6 %; PLT - PLATELET COUNT 223 10^3/uL (130-450); RED BLOOD COUNT 4.35 10^6/uL (4.20-5.40); RED CELL DISTRIBUTION WIDTH 13.5 % (12.0-15.0); WHITE BLOOD COUNT 4.4 x10^3/uL (4.8-10.8)
[2023-12-05 00:59] LABS: ALBUMIN 3.4 g/dL (3.2-5.5); ALBUMIN/GLOBULIN RATIO 1.5 (1.0-2.2); BILIRUBIN,TOTAL 0.4 mg/dL (0.2-1.0); CALCIUM 8.3 mg/dL (8.5-10.3); CREATININE 1.3 mg/dL (0.6-1.3); POTASSIUM 3.6 mmol/L (3.5-4.5); TOTAL PROTEIN 5.6 g/dL (6.4-8.9)
[2023-12-05 01:23] LABS: BILIRUBIN,URINE NEGATIVE (NEGATIVE); GLUCOSE, URINE (UA) NEGATIVE (NEGATIVE); KETONES,URINE (UA) NEGATIVE (NEGATIVE); LEUKOCYTE ESTERASE, URINE NEGATIVE (NEGATIVE); NITRITE,URINE NEGATIVE (NEGATIVE); OCCULT BLOOD,URINE NEGATIVE (NEGATIVE); PROTEIN,URINE NEGATIVE (NEGATIVE); UROBILINOGEN,URINE 0.2 (NORMAL) E.U./dL (NORMAL)
[2023-12-05 01:37] LABS: CLARITY,URINE CLEAR (CLEAR)
--- NOTE | 2023-12-05 01:37 | ED Physician Documentation ---
History of Present Illness - Stated complaint Stated Complaint: COUGH/DIARRHEA - Chief complaint Chief Complaint: Resp - History obtained from History obtained from: Patient - Additonal information Additional information: HPI from patient. Patient c/o diarrhea, dizziness and feeling unsteady and "shaky" (per patient) when standing. She also has frequent, moist but nonproductive cough. Symptoms began 5 days ago. She returned from a trip to [place] 6 days ago ([place]). Denies fever, denies shortness of breath. Denies headache, numbness, focal weakness. Denies blood in stool, black/tarry stool. Denies n/v. PD PAST MEDICAL HISTORY - Past Medical History Past Medical History: Yes Cardiovascular: None Musculoskeletal: Osteoarthritis - Past Surgical History Past Surgical History: Yes HEENT: Tonsil/Adenoidectomy - Present Medications Home Medications: Ambulatory Orders Medication Instructions Recorded Confirmed Diltiazem HCl [Cardizem Cd] 360 mg PO DAILY 11/21/20 11/21/20 HYDROcod/ACETAM 5/325 [[place] 5/325] 1 ea PO Q6H PRN #12 tablet 11/21/20 Metoprolol Succinate [Kapspargo 100 mg PO BID 11/21/20 11/21/20 Sprinkle] Nystatin 1 applic TP BID 7 Days #15 gm 11/21/20 Triamterene/Hydrochlorothiazid 1 tab PO DAILY 11/21/20 11/21/20 [Triamterene-Hctz 37.5-25 mg Tb] Warfarin [Coumadin] 5 mg PO DAILY 11/21/20 11/21/20 dexAMETHasone [Decadron] 4 mg PO DAILY #7 tablet 11/21/20 Benzonatate [Tessalon] 100 mg PO TID PRN #30 cap 12/05/23 Diphenoxylate/Atropine [Lomotil] 1 each PO QID PRN #10 tablet 12/05/23 Oseltamivir [Tamiflu] 30 mg PO BID #9 cap 12/05/23 - Allergies Allergies/Adverse Reactions: Allergies Allergy/AdvReac Type Severity Reaction Status Date / Time No Known Drug Allergies Allergy Verified 12/04/23 23:59 - Social History Does the pt smoke?: No Smoking Status: Never smoker Does the pt drink ETOH?: No Does the pt have substance abuse?: No - Immunizations Immunizations are current?: Yes - POLST Patient has POLST: No PD ED PE NORMAL - Vitals Vital signs reviewed: Yes - General General: Alert and oriented X 3, No acute distress, Well developed/nourished - HEENT HEENT: Other (tacky and pasty mucous membranes) - Neck Neck: Supple, no meningeal sign - Cardiac Cardiac: RRR, No murmur - Respiratory Respiratory: No respiratory distress - Abdomen Abdomen: Normal bowel sounds, Soft, Non tender, Non distended - Back Back: No CVA TTP - Derm Derm: Normal color, Warm and dry - Extremities Extremities: No edema - Neuro Neuro: Alert and oriented X 3 PD ED PE EXPANDED - Respiratory Respiratory: Other (scattered coarse rhonchi but good air flow/movement) Results - Vitals Vitals: Vital Signs - 24 hr 12/04/23 12/05/23 12/05/23 23:45 01:16 03:00 Temperature 36.8 C Heart Rate 118 H 110 H 87 Respiratory 15 12 18 Rate Blood Pressure 128/80 156/98 H 139/89 H O2 Saturation 96 97 94 12/05/23 05:24 Temperature Heart Rate 81 Respiratory 16 Rate Blood Pressure 132/82 H O2 Saturation 99 Oxygen O2 Source Room air - Labs Labs: Laboratory Tests 12/05/23 12/05/23 12/05/23 00:21 00:36 01:05 WBC 4.4 L RBC 4.35 Hgb 13.8 Hct 41.9 MCV 96.3 MCH 31.7 H MCHC 32.9 RDW 13.5 Plt Count 223 MPV 10.7 Neut # (Auto) 2.4 Lymph # (Auto) 1.0 L [place] # (Auto) 1.0 Eos # (Auto) 0.0 Baso # (Auto) 0.0 Absolute Nucleated RBC 0.00 Nucleated RBC % 0.0 Sodium 130 L Potassium 3.6 Chloride 97 L Carbon Dioxide 23 Anion Gap 10.0 BUN 24 H Creatinine 1.3 Estimated GFR (MDRD) 40 L Glucose 98 Calcium 8.3 L Total Bilirubin 0.4 AST 32 ALT 17 Alkaline Phosphatase 69 Total Protein 5.6 L Albumin 3.4 Globulin 2.2 Albumin/Globulin Ratio 1.5 Lipase 47 Urine Color YELLOW Urine Clarity CLEAR Urine pH 6.0 Ur Specific Gans <=1.005 Urine Protein NEGATIVE Urine Glucose (UA) NEGATIVE Urine Ketones NEGATIVE Urine Occult Blood NEGATIVE Urine Nitrite NEGATIVE Urine Bilirubin NEGATIVE Urine Urobilinogen 0.2 (NORMAL) Ur Leukocyte Esterase NEGATIVE Ur Microscopic Review NOT INDICATED Urine Culture Comments NOT INDICATED Nasal Adenovirus (PCR) Nasal B. parapertussis DNA (PCR) Nasal Coronavir 229E PCR Nasal Coronavir HKU1 PCR Nasal Coronavir NL63 PCR Nasal Coronavir OC43 PCR Nasal Enterovir/Rhinovir PCR Nasal Influ A H1 2009 PCR Nasal Influenza B PCR Nasal Influenza A PCR Nasal Parainfluen 1 PCR Nasal Parainfluen 2 PCR Nasal Parainfluen 3 PCR Nasal Parainfluen 4 PCR Nasal RSV (PCR) Nasal B.pertussis DNA PCR Nasal C.pneumoniae (PCR) Yobani Human Metapneumo PCR Nasal M.pneumoniae (PCR) Nasal SARS-CoV-2 (PCR) 12/05/23 03:45 WBC RBC Hgb Hct MCV MCH MCHC RDW Plt Count MPV Neut # (Auto) Lymph # (Auto) [place] # (Auto) Eos # (Auto) Baso # (Auto) Absolute Nucleated RBC Nucleated RBC % Sodium Potassium Chloride Carbon Dioxide Anion Gap BUN Creatinine Estimated GFR (MDRD) Glucose Calcium Total Bilirubin AST ALT Alkaline Phosphatase Total Protein Albumin Globulin Albumin/Globulin Ratio Lipase Urine Color Urine Clarity Urine pH Ur Specific Gans Urine Protein Urine Glucose (UA) Urine Ketones Urine Occult Blood Urine Nitrite Urine Bilirubin Urine Urobilinogen Ur Leukocyte Esterase Ur Microscopic Review Urine Culture Comments Nasal Adenovirus (PCR) NOT DETECTED Nasal B. parapertussis DNA (PCR) NOT DETECTED Nasal Coronavir 229E PCR NOT DETECTED Nasal Coronavir HKU1 PCR NOT DETECTED Nasal Coronavir NL63 PCR NOT DETECTED Nasal Coronavir OC43 PCR NOT DETECTED Nasal Enterovir/Rhinovir PCR NOT DETECTED Nasal Influ A H1 2009 PCR DETECTED A Nasal Influenza B PCR NOT DETECTED Nasal Influenza A PCR NOT DETECTED Nasal Parainfluen 1 PCR NOT DETECTED Nasal Parainfluen 2 PCR NOT DETECTED Nasal Parainfluen 3 PCR NOT DETECTED Nasal Parainfluen 4 PCR NOT DETECTED Nasal RSV (PCR) NOT DETECTED Nasal B.pertussis DNA PCR NOT DETECTED Nasal C.pneumoniae (PCR) NOT DETECTED Yobani Human Metapneumo PCR NOT DETECTED Nasal M.pneumoniae (PCR) NOT DETECTED Nasal SARS-CoV-2 (PCR) NOT DETECTED - Rads (name of study) chest xray Relevant Findings:: Prelim report reviewed, See rad report PD Medical Decision Making - ED course Complexity details: reviewed results, re-evaluated patient, considered differential, d/w patient ED course: Mild abnormalities on blood tests include leukopenia (wbc 4.4), hyponatremia (130), bun 24 with 1.3 creatinine resulting in GFR 40, mild hypocalcemia (8.3). Normal UA, CXR. Normal h/h. Respiratory PCR panel is positive for influenza A, which would account for most of her symptoms although diarrhea would be atypical. C diff and stool PCR ordered but patient was unable to produce any st ool during ED stay. She is given 2 liters NS IV along with 1 tab lomotil PO, robitssuin AC, and oseltamivir. Results d/w patient, return precautions reviewed. I am e-prescribing course of oseltamivir (dose adjusted to account for creatinine clearance of 41 (by Cockcroft-Gault)), as well as lomotil and benzonatate. Departure - Departure Disposition: 01 Home, Self Care Clinical Impression: Influenza A Diarrhea Qualifiers: Diarrhea type: unspecified type Qualified Code(s): R19.7 - Diarrhea, unspecified Condition: Good Instructions: ED Diarrhea Viral, ED Flu Prescriptions: Diphenoxylate/Atropine [Lomotil] 1 each PO QID PRN #10 tablet PRN Reason: Diarrhea Oseltamivir [Tamiflu] 30 mg PO BID #9 cap Benzonatate [Tessalon] 100 mg PO TID PRN #30 cap PRN Reason: Cough Comments: There is no evidence of pneumonia on the chest x-ray, and no concerning findings on your blood test. As we discussed, both your white blood cell count and your sodium levels were both slightly below normal range but not to a concerning extent. Your kidney function tests were also slightly abnormal; this could be due to dehydration but also the diuretics that you are taking (furosemide) is likely a contributing factor to these kidney function tests. The nasal swab tested positive for influenza A. This certainly would account for your coughing and shortness of breath. Diarrhea is quite uncommon with influenza and thus might be a separate process/illness from influenza. You were given the first dose of an anti-viral medication in the emergency department (oseltamivir) and I electronically submitted a prescription for a 5- day course of this medication to the [facility] in [place]. I have also submitted prescriptions for Lomotil (anti-diarrhea medication) and benzonatate (cough suppressant). Discharge Date/Time: 12/05/23 05:25
[2023-12-05 04:48] LABS: B. PARAPERTUSSIS- RESP PCR PAN NOT DETECTED; B. PERTUSSIS- RESP PCR PANEL NOT DETECTED; C. PNEUMONIAE- RESP PCR PANEL NOT DETECTED; CORONAVIRUS 229E-RESP PCR NOT DETECTED; CORONAVIRUS HKU1-RESP PCR NOT DETECTED; CORONAVIRUS NL63-RESP PCR NOT DETECTED; CORONAVIRUS OC43-RESP PCR NOT DETECTED; HUMAN METAPNEUMOVIRUS NOT DETECTED; INFLUENZA A H1 2009- RESP PCR DETECTED; INFLUENZA A- RESP PCR PANEL NOT DETECTED; INFLUENZA B - RESP PCR PANEL NOT DETECTED; M. PNEUMONIAE- RESP PCR PANEL NOT DETECTED; PARAINFLUENZA VIRUS 1 NOT DETECTED; PARAINFLUENZA VIRUS 2 NOT DETECTED; PARAINFLUENZA VIRUS 3 NOT DETECTED; PARAINFLUENZA VIRUS 4 NOT DETECTED; RHINOVIRUS/ENTEROVIRUS NOT DETECTED; RSV- RESP PCR PANEL NOT DETECTED; SARS-CoV-2 -RESP PCR PANEL NOT DETECTED
[2023-12-05] MEDS: OSELTAMIVIR 75 MG CAPSULE PO STA (05:13)
[2023-12-05] MEDS: DIPHENOX/ATROPINE 2.5/0.025 MG TABLET PO STA (05:13)
[2023-12-05] MEDS: guaiFENesin/CODEINE 5 ML UDC PO STA (05:13)
[2023-12-05 05:27] VITALS: BP 132/82; O2SAT 99
--- NOTE | 2023-12-05 08:04 | XRAY Report ---
PROCEDURE: Chest 2V INDICATIONS: cough, dyspnea TECHNIQUE: 2 views of the chest were acquired. COMPARISON: 12/21/2022. FINDINGS: Surgical changes and devices: None. Lungs and pleura: No pleural effusions or pneumothorax. Hyperinflation and chronic emphysematous elizabeth nges are seen. Mediastinum: Mediastinal contours appear normal. Heart size is enlarged. Large hiatal hernia is aga in seen. Bones and chest wall: No suspicious bony lesions. Overlying soft tissues appear unremarkable. IMPRESSION: COPD. No focal infiltrate, pleural effusion or pneumothorax. No discrepancies from preliminary reading. Reviewed by: Dirk Cheung MD on 12/05/2023 8:02 AM PDT Approved by: Dirk Cheung MD on 12/05/2023 8:02 AM PDT Station ID: [id number]
== END 2023-12-05 05:25 | disposition home or self-care (01) ==
LOC: EDUNIT# → ED 23:48
DX: J10.1 Influenza due to other identified influenza virus with other respiratory manifestations (principal); R19.7 Diarrhea, unspecified; D72.819 Decreased white blood cell count, unspecified; E87.1 Hypo-osmolality and hyponatremia; E83.51 Hypocalcemia; Z79.899 Other long term (current) drug therapy
CPT/HCPCS: 36415; 71046; 80053; 81003; 83690; 85025; 87633; 96360; 96361; 99284; A9270; 81001; 87086; 87507

== ENCOUNTER 2023-12-12 09:47 | Outpatient (CLI) | payer MEDICARE | END 2023-12-12 09:48 | disposition home or self-care (01) | LOC: LAB 09:47 | PROVIDERS: ATTEND Internal Medicine Cardiovascular Disease | DX: I48.19 Other persistent atrial fibrillation (principal); D68.69 Other thrombophilia; Z51.81 Encounter for therapeutic drug level monitoring; Z79.01 Long term (current) use of anticoagulants | CPT/HCPCS: 36416; 85610 ==

== ENCOUNTER 2023-12-23 07:44 | Outpatient (CLI) | payer MEDICARE | END 2023-12-23 07:45 | disposition home or self-care (01) | LOC: LAB 07:44 | PROVIDERS: ATTEND Internal Medicine Cardiovascular Disease | DX: I48.19 Other persistent atrial fibrillation (principal); D68.69 Other thrombophilia; Z51.81 Encounter for therapeutic drug level monitoring; Z79.01 Long term (current) use of anticoagulants | CPT/HCPCS: 36416; 85610 ==

== ENCOUNTER 2024-01-11 07:09 | Outpatient (CLI) | payer MEDICARE | END 2024-01-11 07:10 | disposition home or self-care (01) | LOC: LAB 07:09 | PROVIDERS: ATTEND Internal Medicine Cardiovascular Disease | DX: I48.19 Other persistent atrial fibrillation (principal); D68.69 Other thrombophilia; Z51.81 Encounter for therapeutic drug level monitoring; Z79.01 Long term (current) use of anticoagulants | CPT/HCPCS: 36416; 85610 ==

== ENCOUNTER 2024-02-01 07:06 | Outpatient (CLI) | payer MEDICARE | END 2024-02-01 07:07 | disposition home or self-care (01) | LOC: LAB 07:06 | PROVIDERS: ATTEND Internal Medicine Cardiovascular Disease | DX: I48.19 Other persistent atrial fibrillation (principal); D68.69 Other thrombophilia; Z51.81 Encounter for therapeutic drug level monitoring; Z79.01 Long term (current) use of anticoagulants | CPT/HCPCS: 36416; 85610 ==

== ENCOUNTER 2024-02-29 07:03 | Outpatient (CLI) | payer MEDICARE | END 2024-02-29 07:04 | disposition home or self-care (01) | LOC: LAB 07:03 | PROVIDERS: ATTEND Internal Medicine Cardiovascular Disease | DX: I48.19 Other persistent atrial fibrillation (principal); D68.69 Other thrombophilia; Z51.81 Encounter for therapeutic drug level monitoring; Z79.01 Long term (current) use of anticoagulants | CPT/HCPCS: 36416; 85610 ==

== ENCOUNTER 2024-03-25 16:25 | Inpatient (IN) | payer MEDICARE ==
--- NOTE | 2024-03-25 16:50 | ED Physician Documentation ---
History of Present Illness - Stated complaint Stated Complaint: FALL/CHEST PX/RT ARM INJ - Chief complaint Chief Complaint: Ext Problem - Additonal information Additional information: 78-year-old female with history of osteoarthritis, A-fib anticoagulated on Coumadin presents emergency department for chest pain, chin hematoma, right arm pain after sustaining a mechanical ground-level fall. Patient says that she was getting out of the car and somehow lost her footing tripped and fell onto her right side of her body but primarily onto her chest. She said that Tylenol has helped somewhat with the pain but she has a hard time taking a deep breath and and feels pain mostly to the midsternal region. She had no loss of consciousness and she has no neurological deficits PD PAST MEDICAL HISTORY - Past Medical History Cardiovascular: None Musculoskeletal: Osteoarthritis - Past Surgical History Past Surgical History: Yes HEENT: Tonsil/Adenoidectomy - Present Medications Home Medications: Ambulatory Orders Medication Instructions Recorded Confirmed HYDROcod/ACETAM 5/325 [[place] 5/325] 1 ea PO Q6H PRN #12 tablet 11/21/20 Metoprolol Succinate [Kapspargo 100 mg PO BID 11/21/20 11/21/20 Sprinkle] Nystatin 1 applic TP BID 7 Days #15 gm 11/21/20 Triamterene/Hydrochlorothiazid 1 tab PO DAILY 11/21/20 11/21/20 [Triamterene-Hctz 37.5-25 mg Tb] Warfarin [Coumadin] 5 mg PO DAILY 11/21/20 11/21/20 dexAMETHasone [Decadron] 4 mg PO DAILY #7 tablet 11/21/20 dilTIAZem HCL [Cardizem Cd] 360 mg PO DAILY 11/21/20 11/21/20 Benzonatate [Tessalon] 100 mg PO TID PRN #30 cap 12/05/23 Diphenoxylate/Atropine [Lomotil] 1 each PO QID PRN #10 tablet 12/05/23 Oseltamivir [Tamiflu] 30 mg PO BID #9 cap 12/05/23 - Allergies Allergies/Adverse Reactions: Allergies Allergy/AdvReac Type Severity Reaction Status Date / Time No Known Drug Allergies Allergy Verified 03/25/24 16:31 - Social History Does the pt smoke?: No Smoking Status: Never smoker Does the pt drink ETOH?: No Does the pt have substance abuse?: No - Immunizations Immunizations are current?: Yes - POLST Patient has POLST: No Results - Vitals Vitals: Vital Signs - 24 hr 03/25/24 03/25/24 03/25/24 16:31 17:06 17:30 Temperature 37.1 C Heart Rate 87 75 73 Respiratory 18 21 20 Rate Blood Pressure 145/97 H 110/77 117/79 O2 Saturation 98 96 97 03/25/24 03/25/24 19:43 21:00 Temperature Heart Rate 115 H 114 H Respiratory 18 18 Rate Blood Pressure 144/98 H 117/79 O2 Saturation 96 98 Oxygen O2 Source Room air - EKG (time done) 2009 EKG releavant findings:: EKG personally interpreted by author of this note. Relevant findings are: Rate: Rate (enter#) (83) Rhythm: Atrial fibrillation [place]: Normal Intervals: Prolonged QT (QTc 503), Other (ventricular premature complexes) Ischemia: Normal ST segments Computer interpretation: Agree with computer - Labs Labs: Laboratory Tests 03/25/24 03/25/24 03/25/24 16:57 16:57 16:57 WBC 7.0 RBC 3.74 L Hgb 12.2 Hct 37.2 MCV 99.5 H MCH 32.6 H MCHC 32.8 RDW 14.1 Plt Count 267 MPV 10.2 Neut # (Auto) 4.0 Lymph # (Auto) 2.1 [place] # (Auto) 0.8 Eos # (Auto) 0.1 Baso # (Auto) 0.0 Absolute Nucleated RBC 0.00 Nucleated RBC % 0.0 PT 34.3 H INR 3.4 H Sodium 142 Potassium 3.7 Chloride 105 Carbon Dioxide 30 Anion Gap 7.0 BUN 34 H Creatinine 1.8 H Estimated GFR (MDRD) 27 L Glucose 124 H Calcium 9.1 Magnesium 1.9 Total Bilirubin 0.5 AST 19 ALT 12 Alkaline Phosphatase 73 Troponin I High Sens Total Protein 6.7 Albumin 3.7 Globulin 3.0 Albumin/Globulin Ratio 1.2 Lipase 42 03/25/24 20:06 WBC RBC Hgb Hct MCV MCH MCHC RDW Plt Count MPV Neut # (Auto) Lymph # (Auto) [place] # (Auto) Eos # (Auto) Baso # (Auto) Absolute Nucleated RBC Nucleated RBC % PT INR Sodium Potassium Chloride Carbon Dioxide Anion Gap BUN Creatinine Estimated GFR (MDRD) Glucose Calcium Magnesium Total Bilirubin AST ALT Alkaline Phosphatase Troponin I High Sens 4.5 Total Protein Albumin Globulin Albumin/Globulin Ratio Lipase - Rads (name of study) . Head CT without Relevant Findings:: Final report received, EMP independent interpretation of test, Other (No acute intracranial abnormalities or findings) Chest CT without Relevant Findings:: Final report received, EMP independent interpretation of test, Other (Acute nondisplaced sternal body fracture. Nondisplaced bilateral anterior 2nd through 5th rib fractures) Right wrist x-rays Relevant Findings:: Final report received, EMP independent interpretation of test, Other (No acute bony abnormalities.) Right forearm x-rays Relevant Findings:: Final report received, EMP independent interpretation of test, Other (Radial head fracture) Right elbow x-rays Relevant Findings:: Final report received, EMP independent interpretation of test, Other (Radial neck fracture) PD Medical Decision Making - ED course ED course: 78-year-old female presents emergency department for pain to chest after mechanical ground-level fall. She also complains of right upper extremity pain as well. Patient is hemodynamically stable, no hypoxia stable on room air without any difficulty. When I originally asked her if she wanted any pain medication she said that she took Tylenol this morning and wanted to hold off for now. Labs are complete for further evaluation no anemia no leukocytosis INR supratherapeutic 3.4,Troponin is unremarkable. EKG shows A-fib rate controlled heart rate 83 with no obvious active ST depression or elevation concerning for possible ACS. Imaging was complete for further evaluation head CT without con does not reveal any acute intracranial abnormalities or findings. She does have a bruise to her chin but she says there is minimal swelling and tenderness here which is why I did not pursue maxillofacial scans. Patient reports majority of her pain is to her sternum area and bilateral anterior chest. CT chest without con revealed multiple fractures -Acute nondisplaced sternal body fracture -Bilateral anterior 2nd through 5th rib fractures X-ray of her elbow forearm and wrist were also complete and she appeared to have a mildly displaced radial head fracture. She was placed in a splint for management of this fracture. Because of these findings on-call surgeon Dr. Grullon and patient was updated of his results. Patient is agreeable to be admitted and Dr. Grullon graciously agreed to admit this patient for observation and pneumonia prevention and pain control. Patient was finally agreeable to take oxycodone and Tylenol after finding out about her multiple fractures. She has 2 supportive daughters who are bedside. Patient is quite surprised by all the fractures but she is agreeable to be admitted for observation. Departure - Departure Disposition: 66 [facility] DC/Xfer Clinical Impression: Sternum fx, Contusion of chin, Ground-level fall, Radial head fracture, Ribs, multiple fractures, PRESTON (acute kidney injury) Discharge Date/Time: 03/25/24 22:16
[2024-03-25 17:02] LABS: BASOPHILS % (AUTO) 0.3 %; EOSINOPHILS # (AUTO) 0.1 10^3/uL (0.0-0.7); HCT - HEMATOCRIT 37.2 % (37.0-47.0); HGB - HEMOGLOBIN 12.2 g/dL (12.0-16.0); LYMPHOCYTES # (AUTO) 2.1 10^3/uL (1.5-3.5); LYMPHOCYTES % (AUTO) 30.3 %; MEAN CORPUSCULAR HEMOGLOBIN 32.6 pg (27.0-31.0); MEAN CORPUSCULAR HGB CONC 32.8 g/dL (32.0-36.0); MEAN CORPUSCULAR VOLUME 99.5 fL (81.0-99.0); MEAN PLATELET VOLUME 10.2 fL (7.9-10.8); MONOCYTES # (AUTO) 0.8 10^3/uL (0.0-1.0); NEUTROPHILS % (AUTO) 56.3 %; PLT - PLATELET COUNT 267 10^3/uL (130-450); RED BLOOD COUNT 3.74 10^6/uL (4.20-5.40); RED CELL DISTRIBUTION WIDTH 14.1 % (12.0-15.0)
[2024-03-25 17:08] LABS: INR 3.4 (0.8-1.2); PT - PROTHROMBIN TIME 34.3 secs (9.9-12.6)
[2024-03-25 17:16] LABS: ALBUMIN 3.7 g/dL (3.2-5.5); ALBUMIN/GLOBULIN RATIO 1.2 (1.0-2.2); BILIRUBIN,TOTAL 0.5 mg/dL (0.2-1.0); CALCIUM 9.1 mg/dL (8.5-10.3); CREATININE 1.8 mg/dL (0.6-1.3); MAGNESIUM 1.9 mg/dL (1.7-2.3); POTASSIUM 3.7 mmol/L (3.5-4.5); TOTAL PROTEIN 6.7 g/dL (6.4-8.9)
--- NOTE | 2024-03-25 18:06 | CT Report ---
PROCEDURE: Head WO INDICATIONS: GLF, head injury TECHNIQUE: Noncontrast 4.5 mm thick angled axial sections acquired from the foramen magnum to the vertex. For r adiation dose reduction, the following was used: automated exposure control, adjustment of mA and/or kV according to patient size. COMPARISON: None. FINDINGS: Image quality: Excellent. CSF spaces: Basal cisterns are patent. No extra-axial fluid collections. Ventricles are normal in size and shape. Brain: No midline shift. No intracranial masses or hemorrhage. Age-related global volume loss and chronic microvascular ischemic changes. Intracranial atherosclerotic vascular calcifications. Mitchell-w keya matter interface is normal. Skull and face: Calvarium and visualized facial bones are intact, without suspicious lesions. Sinuses: Visualized sinuses and mastoids are clear. IMPRESSION: No acute intracranial pathology. Reviewed by: Edvin Welch MD on 03/25/2024 6:04 PM PDT Approved by: Edvin Welch MD on 03/25/2024 6:04 PM PDT Station ID: [id number]
--- NOTE | 2024-03-25 18:31 | CT Report ---
PROCEDURE: Chest WO INDICATIONS: anterior chest pain after GLF TECHNIQUE: A CT scan of the chest was performed. Intravenous contrast media was not administered. Images were re corded and evaluated at appropriate window settings. Reformats: axial MIP of the chest, coronal and s agittal. For radiation dose reduction, the following was used: automated exposure control, adjustment of mA and/or kV according to patient size. COMPARISON: Chest radiograph on December 05, 2023. FINDINGS: Image quality: Diagnostic. Chest wall and lower neck: No thyroid nodule which requires sonographic follow up. No axillary or sup raclavicular adenopathy by size. Lungs and pleura: Left lower lobe hypodense consolidation (2/57). Right middle lobe and lower lobe guo bsegmental linear atelectasis/scar. No pleural effusions. No pneumothorax. No suspicious pulmonary n odules which require follow up. Mediastinum: Heart size is enlarged. No pericardial effusion. No large vessel abnormality. No mediast inal hematoma. No mediastinal adenopathy by size criteria. A few prominent, but not enlarged, mediast inal lymph nodes. For example, precarinal lymph node measures 0.9 cm in short axis (2/36). Mild calci fication of the thoracic aorta. Mild three-vessel coronary calcification. Large hiatal hernia. Bones: Diffuse osseous demineralization limits sensitivity for subtle nondisplaced fracture. Acute no ndisplaced sternal body (8/76). Nondisplaced bilateral anterior second through fifth rib fractures wh ich are age indeterminate. Multilevel degenerative changes of the spine with exaggerated thoracic ky phosis and dextroconvex curvature of the thoracic spine Upper Abdomen: Moderate calcification of the abdominal aorta. Partially visualized thinning of the le ft anterior interpolar region of the kidney, likely sequela of remote infection and/or inflammation. IMPRESSION: 1.Acute nondisplaced sternal body fracture. Nondisplaced bilateral anterior second through fifth rib fractures which are age indeterminate, likely acute. Correlate for point tenderness. 2.No acute intrathoracic pathology. Specifically, no anterior mediastinal hematoma, pulmonary contusi on or pneumothorax. 3.Left lower lobe hypodense patchy consolidation, likely sequela of aspiration and/or pneumonia. 4.Large hiatal hernia. 5.Cardiomegaly. 6.Multilevel degenerative changes of the spine with dextroconvex curvature and exaggerated thoracic k yphosis. Diffuse osseous demineralization limits sensitivity for a subtle nondisplaced fracture of th e spine. If there is high clinical suspicion, recommend MRI for further evaluation. Reviewed by: Vasile Day MD on 03/25/2024 5:29 PM MALATHI Approved by: Vasile Day MD on 03/25/2024 5:29 PM MALATHI Station ID: [id number]
--- NOTE | 2024-03-25 19:22 | XRAY Report ---
PROCEDURE: Elbow 1-2V RT INDICATIONS: GLF, right arm pain TECHNIQUE: 3 views of the elbow were acquired. COMPARISON: None. FINDINGS: Bones: Cortical irregularity of the radial neck. No suspicious bony lesions. Soft tissues: Moderate effusion. No suspicious soft tissue calcifications or masses. IMPRESSION: Cortical irregularity of the radial neck consistent mildly displaced fracture. Moderate joint effusio n. Reviewed by: Edvin Resendiz MD on 03/25/2024 7:21 PM PDT Approved by: Edvin Resendiz MD on 03/25/2024 7:21 PM PDT Station ID: [id number]
--- NOTE | 2024-03-25 19:23 | XRAY Report ---
PROCEDURE: Forearm RT INDICATIONS: GLF, right arm pain TECHNIQUE: 2 views of the forearm were acquired. COMPARISON: None. FINDINGS: Bones: No acute fractures or dislocations. Radial head fracture is better evaluated on dedicated elb ow radiograph. No suspicious bony lesions. Soft tissues: No suspicious soft tissue calcifications or masses. IMPRESSION: Radial head fracture is better evaluated on dedicated elbow radiograph. Otherwise, no acute osseous a dvised. Reviewed by: Edvin Resendiz MD on 03/25/2024 7:22 PM PDT Approved by: Edvin Resendiz MD on 03/25/2024 7:22 PM PDT Station ID: [id number]
--- NOTE | 2024-03-25 19:23 | XRAY Report ---
PROCEDURE: Wrist 3+V RT INDICATIONS: GLF, right arm pain TECHNIQUE: 4 views of the wrist were acquired. COMPARISON: None. FINDINGS: Bones: No fractures or dislocations. No suspicious bony lesions. Soft tissues: No suspicious soft tissue calcifications or masses. IMPRESSION: No acute bony abnormality. If pain persists with conservative management, consider repeat x-ray in 10 -14 days or cross-sectional imaging. Reviewed by: Edvin Resendiz MD on 03/25/2024 7:21 PM PDT Approved by: Edvin Resendiz MD on 03/25/2024 7:21 PM PDT Station ID: [id number]
[2024-03-25] MEDS: ACETAMINOPHEN 500 MG TABLET PO STA (20:12)
[2024-03-25] MEDS: oxyCODONE 5 MG TABLET PO STA (20:12)
[2024-03-25] MEDS: SODIUM CHLORIDE 0.9% 500 ML IV ONE (20:15)
[2024-03-25] MEDS ORDERED: ONDANSETRON 4 MG/2 ML VIAL IVP PRN (21:14)
[2024-03-25] MEDS ORDERED: SODIUM CHLORIDE FLUSH 0.9% 10 ML SYRINGE IVP PRN (21:14)
--- NOTE | 2024-03-25 21:32 | HISTORY & PHYSICAL EXAMINATION ---
Chief Complaint - Chief Complaint Chief Complaint: chest pain History of Present Illness - Admitted From Admitted From:: home - ED - History Obtained From History obtained from: patient, daughters Exam Limitations: none - History of Present Illness HPI Comment/Other: 78yoF sustained mechanical GLF yesterday (>24hrs ago) after stepping out of her car. She fell onto her right arm and chest, did hit her chin on the ground, denies LOC. She was helped up by her daughters and went home. AT home the last 24hrs she was eating normally but had persistent pain in the right arm and chest, so presented to the ED for evaluation. History - Past Medical History Cardiovascular: reports: Atrial fibrillation Musculoskeletal: reports: Osteoarthritis, Gout MRSA Hx?: No - Past Surgical History HEENT: reports: Tonsil/Adenoidectomy - POLST Patient has POLST: No Meds/Allgy - Home Medications Home Medications: Ambulatory Orders Medication Instructions Recorded Confirmed HYDROcod/ACETAM 5/325 [[place] 5/325] 1 ea PO Q6H PRN #12 tablet 11/21/20 Metoprolol Succinate [Kapspargo 100 mg PO BID 11/21/20 11/21/20 Sprinkle] Nystatin 1 applic TP BID 7 Days #15 gm 11/21/20 Triamterene/Hydrochlorothiazid 1 tab PO DAILY 11/21/20 11/21/20 [Triamterene-Hctz 37.5-25 mg Tb] Warfarin [Coumadin] 5 mg PO DAILY 11/21/20 11/21/20 dexAMETHasone [Decadron] 4 mg PO DAILY #7 tablet 11/21/20 dilTIAZem HCL [Cardizem Cd] 360 mg PO DAILY 11/21/20 11/21/20 Benzonatate [Tessalon] 100 mg PO TID PRN #30 cap 12/05/23 Diphenoxylate/Atropine [Lomotil] 1 each PO QID PRN #10 tablet 12/05/23 Oseltamivir [Tamiflu] 30 mg PO BID #9 cap 12/05/23 - Allergies Allergies/Adverse Reactions: Allergies Allergy/AdvReac Type Severity Reaction Status Date / Time No Known Drug Allergies Allergy Verified 03/25/24 16:31 Review of Systems - Constitutional Constitutional: reports: Fever. denies: Poor appetite - Eyes Eyes: denies: Blurred vision - Ears, Nose & Throat Ears, Nose & Throat: denies: Ear pain, Vertigo - Cardiovascular Cariovascular: reports: Chest pain. denies: Palpitations, Lightheadedness, Syncope - Respiratory Respiratory: denies: Cough, Wheezing - Gastrointestinal Gastrointestinal: denies: Abdominal pain, Diarrhea, Rectal bleeding, Nausea, Vomiting - Genitourinary Genitourinary: denies: Dysuria, Hematuria - Musculoskeletal Musculoskeletal: reports: Limited range of motion (right arm) - Neurological Neurological: denies: General weakness, Headache, Dizziness Prior Level of Functionality: Lives alone, independent with ADL, no assist device for ambulation Exam - Vital Signs Reviewed Vital Signs: Yes Vital Signs: Vital Signs x48h Temp Pulse Resp BP Pulse Ox 03/25/24 19:43 115 H 18 144/98 H 96 03/25/24 17:30 73 20 117/79 97 03/25/24 17:06 75 21 110/77 96 03/25/24 16:31 37.1 C 87 18 145/97 H 98 - Physical Exam General Appearance: positive: No acute distress, Alert Eyes Bilateral: positive: Normal inspection, PERRL ENT: positive: ENT inspection nml, Pharynx nml, No signs of dehydration, Other (1x2cm ecchymosis over chin) Neck: positive: Nml inspection, Thyroid nml, No JVD, Trachea midline Respiratory: negative: Chest non-tender (sternal tenderness to palpation, minimal anterior rib ttp, no lateral rib ttp) Cardiovascular: positive: Irregularly irregular. negative: Tachycardia, C repitus Peripheral Pulses: positive: 2+ Abdomen: positive: Non-tender, No distention Back: positive: Nml inspection Skin: positive: Color nml, No rash Extremities: negative: Non-tender (right elbow tender, limited ROM) Neurologic/Psychiatric: positive: Oriented x3, Motor nml, Sensation nml Conclusion/Plan - Problem List (1) Ground-level fall Conclusion/Plan: 78yoF >24hrs s/p mechanical GLF without LOC. Sustained sternal fx, bilateral rib fx #2-5, right radial head fx, and chin hematoma. Presenting with supratherapeutic INR (3.4) and PRESTON (Cr 1.8) Will admit for multimodal pain control and respiratory therapy for sternal and rib fractures, given risk of subsequent pna. - lidocaine patch - gabapentin - scheduled tylenol - prn oxycodone - IS with respiratory therapy - ambulation TID with nurses - physical therapy consult for discharge planning (lives alone) - regular diet - CT abd/pel pending to complete trauma evaluation given # of chest wall fractures No evidence of underlying ptx or pleural effusion with rib fx on imaging. no evidence of BCI with sternal fx - trops normal and EKG at baseline with Afib. INR is 3.4. - continue home dilt, replace home metoprolol with 5mg IV metroprolol q6 - hold home coumadin, trend INR - SCDs only for dvt ppx given INR 3.4 Radial head fx - maintain sling, outpatient f/u with ortho PRESTON - creatinine 1.8 (1.3 in november) - judicious IVF in setting of rib fx: LR @ 75 - trend BMP (5) PRESTON (acute kidney injury) Conclusion/Plan: judicious IVF in setting of rib fx: LR @ 75cc/hr (6) Contusion of chin Conclusion/Plan: nothing to do - Lab Results Fish Bones: 03/25/24 16:57 03/25/24 16:57 - Diagnostic Imaging Results Diagnostic Imaging Results: positive: Final report reviewed Diagnostic Imaging Results Comments: CT head - no acute fracture CT chest - nondisplaced sternal fracture, nondisplaced rib fractures: bilateral ribs 2-5 anteriorly. No pneumothorax, no pleural effusion RUE XR: mildly displaced radial head fx with moderate joint effusion EKG: afib - EKG Results EKG Comparison: Unchanged from prior EKG EKG Findings: afib
--- NOTE | 2024-03-25 22:05 | CT Report ---
PROCEDURE: Cervical Spine WO INDICATIONS: GLF, multiple broken bones TECHNIQUE: Noncontrast 3 mm thick sections acquired from the skull base to the T4 level. Sagittal and coronal r eformats were then constructed. For radiation dose reduction, the following was used: automated exp osure control, adjustment of mA and/or kV according to patient size. COMPARISON: None. FINDINGS: Image quality: Excellent. Bones: Exaggeration of the normal cervical lordosis. Intact paracervical junction. Degenerative flores ge at C1-2. Trace multilevel anterolisthesis throughout the cervical spine without acute appearing tr aumatic subluxation. Multilevel bilateral facet arthropathy. Moderate to severe degenerative disc hei ght loss from C3 through C7. No acute fractures. Visualized superior ribs are intact. Soft tissues: Prevertebral soft tissues are normal in thickness. No paravertebral hematomas. No ap ical pneumothoraces. IMPRESSION: No CT evidence of acute cervical spine trauma. Multilevel, chronic appearing degenerative changes in the disks and facet joints. Reviewed by: Janet Reyes MD on 03/25/2024 10:03 PM PDT Approved by: Janet Reyes MD on 03/25/2024 10:03 PM PDT Station ID: [id number]
[2024-03-25] MEDS: LACTATED RINGERS 1,000 ML IV SCH (22:38)
--- NOTE | 2024-03-25 23:00 | CT Report ---
PROCEDURE: Abdomen/Pelvis WO INDICATIONS: GLF, multiple broken bones TECHNIQUE: A CT scan of the abdomen and pelvis was performed without the use of intravenous contrast. Images we re recorded and evaluated at appropriate window settings. Reformats: coronal and sagittal. For radiat ion dose reduction, the following was used: automated exposure control, adjustment of mA and/or kV ac cording to patient size. COMPARISON: None. FINDINGS: Image quality: Diagnostic. Lower chest: CT chest CT performed the same day. Liver: No contour-deforming mass. No visible lacerations or perihepatic ascites. Gallbladder: No radiopaque stones or wall thickening. Biliary tree: No intrahepatic or extrahepatic dilation, accounting for age. Spleen: Normal size and intact. Pancreas: No visible transection. Adrenals: No adrenal nodule. Kidneys and ureters: No hydronephrosis. No contour-deforming mass. Left upper pole cyst. No perinephr ic inflammation. Stomach, bowel and peritoneum: Large hiatal hernia. No small bowel obstruction. Normal appendix. Dive rticular disease throughout the colon. No acute inflammation. No pathologic free fluid. Lymph nodes: No central or retroperitoneal adenopathy. Vessels: Decompressed IVC. Normal aortic contour. No retroperitoneal hematoma. Reproductive organs: Anteverted uterus with coarse degenerative vascular calcification. Age-appropria te ovarian tissue. No suspicious adnexal mass. Bladder: Bladder wall thickness is normal, accounting for underdistention. No calcified bladder stone s. Pelvic lymph nodes: No adenopathy by size criteria. Bones: Degenerative reverse S shaped scoliosis. No visible fractures. Other: No significant ventral or inguinal hernia. IMPRESSION: No evidence of trauma in the abdomen or pelvis. Decompressed IVC suggesting low volume state. Reviewed by: Janet Reyes MD on 03/25/2024 10:59 PM PDT Approved by: Janet Reyes MD on 03/25/2024 10:59 PM PDT Station ID: [id number]
[2024-03-25] MEDS: ACETAMINOPHEN 325 MG TABLET PO SCH (23:45)
[2024-03-25] MEDS: METOPROLOL 5 MG/5 ML VIAL IVP SCH (23:57)
[2024-03-25] MEDS: SODIUM CHLORIDE FLUSH 0.9% 10 ML SYRINGE IVP SCH (23:58)
[2024-03-26] MEDS: GABAPENTIN 100 MG CAPSULE PO PRN (00:18)
[2024-03-26] MEDS: oxyCODONE 5 MG TABLET PO PRN (04:35)
[2024-03-26 05:19] LABS: BASOPHILS % (AUTO) 0.3 %; EOSINOPHILS # (AUTO) 0.2 10^3/uL (0.0-0.7); EOSINOPHILS % (AUTO) 3.8 %; HGB - HEMOGLOBIN 11.7 g/dL (12.0-16.0); LYMPHOCYTES # (AUTO) 2.2 10^3/uL (1.5-3.5); LYMPHOCYTES % (AUTO) 37.7 %; MEAN CORPUSCULAR HEMOGLOBIN 32.9 pg (27.0-31.0); MEAN CORPUSCULAR HGB CONC 32.5 g/dL (32.0-36.0); MEAN CORPUSCULAR VOLUME 101.1 fL (81.0-99.0); MEAN PLATELET VOLUME 10.2 fL (7.9-10.8); MONOCYTES # (AUTO) 0.6 10^3/uL (0.0-1.0); MONOCYTES % (AUTO) 10.6 %; NEUTROPHILS # (AUTO) 2.8 10^3/uL (1.5-6.6); NEUTROPHILS % (AUTO) 47.4 %; PLT - PLATELET COUNT 232 10^3/uL (130-450); RED BLOOD COUNT 3.56 10^6/uL (4.20-5.40); RED CELL DISTRIBUTION WIDTH 14.3 % (12.0-15.0); WHITE BLOOD COUNT 5.8 x10^3/uL (4.8-10.8)
[2024-03-26 05:24] LABS: INR 3.5 (0.8-1.2); PT - PROTHROMBIN TIME 35.7 secs (9.9-12.6)
[2024-03-26 05:38] LABS: CALCIUM 8.5 mg/dL (8.5-10.3); CREATININE 1.4 mg/dL (0.6-1.3); MAGNESIUM 1.9 mg/dL (1.7-2.3); PHOSPHORUS 3.2 mg/dL (2.5-5.0); POTASSIUM 3.5 mmol/L (3.5-4.5)
[2024-03-26] MEDS: LIDOCAINE PATCH 4% TOP SCH (08:35)
[2024-03-26] MEDS: diltiaZEM CD 180 MG CAPSULE PO SCH (08:42)
--- NOTE | 2024-03-26 10:03 | PROVIDER PROGRESS NOTE ---
Subjective - General Admit Date: 03/25/24 - Other Other Information/Narrative: Pain much improved since admission, 1/10 at best, 4/10 when due for next dose (pain at sternum). HD normal overnight, no acute events, remains on RA. Pulling 1000 on IS. Has not yet ambulated since admission. Objective - Patient Data Reviewed Vital Signs: Yes Vital Signs: Vital Signs x48h Temp Pulse Resp BP BP Pulse Ox 03/26/24 09:00 36.6 C 79 16 119/86 H 94 03/26/24 05:44 149/75 H 03/26/24 04:08 36.5 C 70 16 146/88 H 92 Weight: Weight 03/24/24 03/25/24 03/26/24 23:59 23:59 23:59 Weight (kg) 70.5 kg Intake & Output: Intake and Output Totals x24h 03/24/24 03/25/24 03/26/24 23:59 23:59 23:59 Intake Total 500 580 Output Total 50 Balance 500 530 - Lab Results Lab Results: 03/26/24 04:55 03/26/24 04:55 Other Lab Results: Lab Results x24hrs 03/26/24 03/26/24 03/26/24 Range/Units 04:55 04:55 04:55 WBC 5.8 (4.8-10.8) x10^3/uL RBC 3.56 L (4.20-5.40) 10^6/uL Hgb 11.7 L (12.0-16.0) g/dL Hct 36.0 L (37.0-47.0) % MCV 101.1 H (81.0-99.0) fL MCH 32.9 H (27.0-31.0) pg MCHC 32.5 (32.0-36.0) g/dL RDW 14.3 (12.0-15.0) % Plt Count 232 (130-450) 10^3/uL MPV 10.2 (7.9-10.8) fL Neut # (Auto) 2.8 (1.5-6.6) 10^3/uL Lymph # (Auto) 2.2 (1.5-3.5) 10^3/uL [place] # (Auto) 0.6 (0.0-1.0) 10^3/uL Eos # (Auto) 0.2 (0.0-0.7) 10^3/uL Baso # (Auto) 0.0 (0.0-0.1) 10^3/uL Absolute Nucleated RBC 0.00 x10^3/uL Nucleated RBC % 0.0 /100WBC PT 35.7 H (9.9-12.6) secs INR 3.5 H (0.8-1.2) Sodium 141 (135-145) mmol/L Potassium 3.5 (3.5-4.5) mmol/L Chloride 107 (101-111) mmol/L Carbon Dioxide 26 (21-32) mmol/L Anion Gap 8.0 (6-13) BUN 25 H (6-20) mg/dL Creatinine 1.4 H (0.6-1.3) mg/dL Estimated GFR (MDRD) 36 L (>89) Glucose 124 H (74-104) mg/dL Calcium 8.5 (8.5-10.3) mg/dL Phosphorus 3.2 (2.5-5.0) mg/dL Magnesium 1.9 (1.7-2.3) mg/dL Total Bilirubin (0.2-1.0) mg/dL AST (10-42) IU/L ALT (10-60) IU/L Alkaline Phosphatase (42-121) IU/L Troponin I High Sens (2.3-14.8) ng/L Total Protein (6.4-8.9) g/dL Albumin (3.2-5.5) g/dL Globulin (2.1-4.2) g/dL Albumin/Globulin Ratio (1.0-2.2) Lipase (11-82) U/L 03/25/24 03/25/24 03/25/24 Range/Units 20:06 16:57 16:57 WBC 7.0 (4.8-10.8) x10^3/uL RBC 3.74 L (4.20-5.40) 10^6/uL Hgb 12.2 (12.0-16.0) g/dL Hct 37.2 (37.0-47.0) % MCV 99.5 H (81.0-99.0) fL MCH 32.6 H (27.0-31.0) pg MCHC 32.8 (32.0-36.0) g/dL RDW 14.1 (12.0-15.0) % Plt Count 267 (130-450) 10^3/uL MPV 10.2 (7.9-10.8) fL Neut # (Auto) 4.0 (1.5-6.6) 10^3/uL Lymph # (Auto) 2.1 (1.5-3.5) 10^3/uL [place] # (Auto) 0.8 (0.0-1.0) 10^3/uL Eos # (Auto) 0.1 (0.0-0.7) 10^3/uL Baso # (Auto) 0.0 (0.0-0.1) 10^3/uL Absolute Nucleated RBC 0.00 x10^3/uL Nucleated RBC % 0.0 /100WBC PT (9.9-12.6) secs INR (0.8-1.2) Sodium 142 (135-145) mmol/L Potassium 3.7 (3.5-4.5) mmol/L Chloride 105 (101-111) mmol/L Carbon Dioxide 30 (21-32) mmol/L Anion Gap 7.0 (6-13) BUN 34 H (6-20) mg/dL Creatinine 1.8 H (0.6-1.3) mg/dL Estimated GFR (MDRD) 27 L (>89) Glucose 124 H (74-104) mg/dL Calcium 9.1 (8.5-10.3) mg/dL Phosphorus (2.5-5.0) mg/dL Magnesium 1.9 (1.7-2.3) mg/dL Total Bilirubin 0.5 (0.2-1.0) mg/dL AST 19 (10-42) IU/L ALT 12 (10-60) IU/L Alkaline Phosphatase 73 (42-121) IU/L Troponin I High Sens 4.5 (2.3-14.8) ng/L Total Protein 6.7 (6.4-8.9) g/dL Albumin 3.7 (3.2-5.5) g/dL Globulin 3.0 (2.1-4.2) g/dL Albumin/Globulin Ratio 1.2 (1.0-2.2) Lipase 42 (11-82) U/L 03/25/24 Range/Units 16:57 WBC (4.8-10.8) x10^3/uL RBC (4.20-5.40) 10^6/uL Hgb (12.0-16.0) g/dL Hct (37.0-47.0) % MCV (81.0-99.0) fL MCH (27.0-31.0) pg MCHC (32.0-36.0) g/dL RDW (12.0-15.0) % Plt Count (130-450) 10^3/uL MPV (7.9-10.8) fL Neut # (Auto) (1.5-6.6) 10^3/uL Lymph # (Auto) (1.5-3.5) 10^3/uL [place] # (Auto) (0.0-1.0) 10^3/uL Eos # (Auto) (0.0-0.7) 10^3/uL Baso # (Auto) (0.0-0.1) 10^3/uL Absolute Nucleated RBC x10^3/uL Nucleated RBC % /100WBC PT 34.3 H (9.9-12.6) secs INR 3.4 H (0.8-1.2) Sodium (135-145) mmol/L Potassium (3.5-4.5) mmol/L Chloride (101-111) mmol/L Carbon Dioxide (21-32) mmol/L Anion Gap (6-13) BUN (6-20) mg/dL Creatinine (0.6-1.3) mg/dL Estimated GFR (MDRD) (>89) Glucose (74-104) mg/dL Calcium (8.5-10.3) mg/dL Phosphorus (2.5-5.0) mg/dL Magnesium (1.7-2.3) mg/dL Total Bilirubin (0.2-1.0) mg/dL AST (10-42) IU/L ALT (10-60) IU/L Alkaline Phosphatase (42-121) IU/L Troponin I High Sens (2.3-14.8) ng/L Total Protein (6.4-8.9) g/dL Albumin (3.2-5.5) g/dL Globulin (2.1-4.2) g/dL Albumin/Globulin Ratio (1.0-2.2) Lipase (11-82) U/L - Current Medications Current Medications: Current Medications Generic Name Dose Route Start Last Admin Trade Name Freq PRN Reason Stop Dose Admin Acetaminophen 975 mg 03/25/24 22:00 03/26/24 05:39 Acetaminophen 325 Mg Tablet PO 975 mg Q8HR SAM Administration Diltiazem HCl 360 mg 03/26/24 09:00 03/26/24 08:42 Diltiazem Cd 180 Mg Capsule PO 360 mg DAILY SAM Administration Gabapentin 100 mg 03/25/24 22:07 03/26/24 00:18 Gabapentin 100 Mg Capsule PO 100 mg Q8HR PRN Administration Moderate Pain (Level 5-7) Lactated Ringer's 1,000 mls @ 75 mls/hr 03/25/24 22:00 03/25/24 22:38 Lr IV 75 mls/hr .[id number] SAM Administration Lidocaine 1 patch 03/26/24 09:00 03/26/24 08:35 Lidocaine Patch 4% TOP 1 patch DAILY SAM Administration Metoprolol Tartrate 5 mg 03/26/24 00:00 03/26/24 05:44 Metoprolol 5 Mg/5 Ml Vial IVP 5 mg Q6HR SAM Administration Oxycodone HCl 5 mg 03/25/24 21:14 03/26/24 04:35 Oxycodone 5 Mg Tablet PO 5 mg Q4HR PRN Administration Pain 5 to 7 Sodium Chloride 10 ml 03/26/24 01:00 03/26/24 08:35 Sodium Chloride Flush 0.9% 10 Ml Syringe IVP 10 ml 0100,0900,1700 SAM Administration - Physical Exam General Appearance: positive: No acute distress Eyes Bilateral: positive: Normal inspection ENT: positive: Other (stable chin hematoma) Neck: positive: Nml inspection, No JVD Respiratory: positive: Breath sounds nml. negative: Chest non-tender (sternal TTP, minimal rib TTP) Cardiovascular: positive: Irregularly irregular Abdomen: positive: Non-tender, No distention Skin: positive: Color nml, No rash Extremities: positive: Other (right arm in sling) Neurologic/Psychiatric: positive: Oriented x3, Mood/affect nml ABX Reporting Has patient been on IV antibiotics over the past 48 hours?: No Impression/Plan - Problem List Problem List: 78yoF admitted 03/25, >24hrs s/p mechanical GLF without LOC. Sustained sternal fx, bilateral rib fx #2-5, right radial head fx, and chin hematoma. Presented also with supratherapeutic INR (3.4) and PRESTON (Cr 1.8) Multimodal pain control has been effective at improving her sternal pain, remains on RA. Cr improved to 1.4 today. INR 3.5, hgb stable. CT abdomen/pelvis with no acute injuries. #sternal and rib fractures. No evidence of underlying ptx or pleural effusion with rib fx on imaging. no evidence of BCI with sternal fx - trops normal and EKG at baseline with Afib. - multimodal pain control --- lidocaine patch --- gabapentin --- scheduled tylenol --- prn oxycodone - respiratory therapy, incentive spirometer (pulls 1000 so far) - ambulation TID with nurses - physical therapy and occupational therapy consult for discharge planning (lives alone) - regular diet - social work consult for discharge planning Supratherapeutic INR (3.4 on admission, 3.5 today), goal 2-3 - continue home dilt, replace home metoprolol with 5mg IV metroprolol q6 - hold home coumadin, trend INR - SCDs only for dvt ppx given INR elevated RIght Radial head fx - maintain sling, outpatient f/u with ortho - No ortho transitional care nurse available this weekend, discussed with Dr. Hightower in ED who feels confident that injury is nonoperative and appropriately managed with sling and outpatient follow up, and decision was made NOT to transfer patient to another facilities ED for ortho evaluation and subsequent trauma admission. PRESTON - improving: creatinine 1.8 --> 1.4 (1.3 in november) - judicious IVF in setting of rib fx: LR @ 75 - trend BMP Signing care over to Dr. Sanchez Thomas, who I discussed the patient with and will see her later today. Florence Grullon DO, FACS General Surgeon, [facility]
--- NOTE | 2024-03-26 12:44 | PHARMACY PROGRESS NOTE ---
- Best Possible Medication History Admit Date and Time: 03/25/242114 Processed by: Pharmacy Patient Interview: Completed Secondary Source(s): Pharmacy records, Insurance records As the person ultimately responsible for medication therapy, providers are able to order a medication from an existing home medication list in [facility] via the "Reconcile Routine" prior to Confirmation of that medication by senior support engineer. Such practice is discouraged except when the physician, in their clinical judgment, deems that a medical need exists for a medication without regard to previous use.
--- NOTE | 2024-03-26 13:45 | PROVIDER PROGRESS NOTE ---
Progress Note General Surgery Progress Note Yassine is sitting comfortably in a chair and her family is in the room. She has no SOB and her main complaint of discomfort is the sternum. She is pulling 1,000 on the IS and her right arm remains in a sling. She is tolerating a diet and has ambulated today. Her pain is well managed with the multimodality strategy and I believe she could be discharged tomorrow after she is evaluated by PT and OT to help reduce the risks of future ground level falls. I reviewed her CT images and labs and concur with the plans outlined in Dr. Grullon's morning progress note. Sanchez Cárdenas MD, [facility] General surgery Service
[2024-03-27 05:02] LABS: BASOPHILS % (AUTO) 0.5 %; EOSINOPHILS # (AUTO) 0.1 10^3/uL (0.0-0.7); EOSINOPHILS % (AUTO) 1.6 %; HCT - HEMATOCRIT 34.3 % (37.0-47.0); HGB - HEMOGLOBIN 11.2 g/dL (12.0-16.0); LYMPHOCYTES # (AUTO) 1.7 10^3/uL (1.5-3.5); LYMPHOCYTES % (AUTO) 21.6 %; MEAN CORPUSCULAR HEMOGLOBIN 32.8 pg (27.0-31.0); MEAN CORPUSCULAR HGB CONC 32.7 g/dL (32.0-36.0); MEAN CORPUSCULAR VOLUME 100.6 fL (81.0-99.0); MEAN PLATELET VOLUME 10.1 fL (7.9-10.8); MONOCYTES # (AUTO) 0.8 10^3/uL (0.0-1.0); MONOCYTES % (AUTO) 10.6 %; NEUTROPHILS # (AUTO) 5.2 10^3/uL (1.5-6.6); NEUTROPHILS % (AUTO) 65.4 %; PLT - PLATELET COUNT 229 10^3/uL (130-450); RED BLOOD COUNT 3.41 10^6/uL (4.20-5.40); WHITE BLOOD COUNT 7.9 x10^3/uL (4.8-10.8)
[2024-03-27 05:12] LABS: INR 2.8 (0.8-1.2); PT - PROTHROMBIN TIME 29.1 secs (9.9-12.6)
[2024-03-27 05:38] LABS: MAGNESIUM 1.7 mg/dL (1.7-2.3)
[2024-03-27 05:44] LABS: CALCIUM 8.8 mg/dL (8.5-10.3); CREATININE 1.1 mg/dL (0.6-1.3); PHOSPHORUS 3.6 mg/dL (2.5-5.0); POTASSIUM 3.9 mmol/L (3.5-4.5)
--- NOTE | 2024-03-27 07:20 | PROVIDER PROGRESS NOTE ---
Progress Note General Surgery Progress Note S: Yassine feels well; Her right radial fracture is in a splint and is not painful. She is breathing well and her main complaint of pain is her sternal fracture. She has ambulated and is tolerating a general diet. Her pain is under control with oral meds to include Oxycodone. O: VSS, afeb; AAO; Lungs clear with good inspiratory effort. Tender sternum to palpation without echymosis or motion. Bilateral rib cage with decreased tenderness to palpation. Heart NSR; Abdomen is soft and non-tender Labs: Creatinine has decreased to 1.1 INR now at 2.8 H&H normal Assessment: GLF with: 1) Bilateral rib fractures 2-5 2) Non-displaced, closed sternal fracture 3) Closed right radial head fracture 4) Supratherapeutic INR - resolving 5) Transient, now resolved PRESTON Plan: 1) Discharge to home on multimodality pain control schedule 2) Use all pre-op medication as usual 3) FU PCP to manage Warfarin 4) Out-patient orthoperdic consult to evaluate and manage her right radial head fracture Sanchez Cárdenas MD, FACS General Surgery Service
--- NOTE | 2024-03-27 07:28 | DISCHARGE SUMMARY ---
"Discharge Summary Admit Date: 03/25/20 Discharge Date: 03/27/24 Discharging Provider: Avi Code Status: Attempt Resuscitation Condition at Discharge: Good Discharge Disposition: 01 Home, Self Care - DIAGNOSES Admission Diagnoses: GLF with: 1) Bilateral rib fractures 2-5 2) Non-displaced, closed sternal fracture 3) Closed right radial head fracture 4) Supratherapeutic INR - resolving 5) Transient, now resolved PRESTON Discharge Diagnoses with Status of Each Condition: GLF with: 1) Bilateral rib fractures 2-5 - stable 2) Non-displaced, closed sternal fracture - stable 3) Closed right radial head fracture 4) Supratherapeutic INR - resolving 5) Transient, now resolved PRESTON - HPI History of Present Illness: 78yoF sustained mechanical GLF yesterday (>24hrs ago) after stepping out of her car. She fell onto her right arm and chest, did hit her chin on the ground, ozzie es LOC. She was helped up by her daughters and went home. AT home the last 24hrs she was eating normally but had persistent pain in the right arm and chest, so presented to the ED for evaluation. - CONSULTS | PROCEDURES Consultations: PT, OT Procedures: None - HOSPITAL COURSE Hospital Course: Uncomplicated. Her pain was under control with multimodality strategy within 24 hours. Her Warfarin was held due to her supratherapeutic INR - she did not demonstrate bleeding due to this issue during her hospitalization. Transient acute kidney injury resolved with fluids. She tolerated a diet, her GI and function was normal, and she was evaluated by PT/OT prior to discharge. Orthopedic evaluation will be arranged as an out-patient for her right radial head fracture. - ALLERGIES Allergies/Adverse Reactions: Allergies Allergy/AdvReac Type Severity Reaction Status Date / Time No Known Drug Allergies Allergy Verified 03/25/24 16:31 - MEDICATIONS Home Medications: Ambulatory Orders Medication Instructions Recorded Confirmed Warfarin [Coumadin] 5 mg PO MOFR 11/21/20 03/26/24 [id number] HCL [Cardizem Cd] 360 mg PO DAILY 11/21/20 03/26/24 Cholecalciferol (Vitamin D3) 125 mcg PO DAILY 03/26/24 03/26/24 [Vitamin D3] Cyanocobalamin (Vitamin B-12) 500 mcg PO DAILY 03/26/24 03/26/24 [Vitamin B-12] Ferrous Sulfate [Feosol] 325 mg PO DAILY 03/26/24 03/26/24 Furosemide [Lasix] 20 mg PO DAILY 03/26/24 03/26/24 Metoprolol Succinate 200 mg PO DAILY 03/26/24 03/26/24 Warfarin [Coumadin] 2.5 mg PO SUTUWETHSA 03/26/24 03/26/24 allopurinoL [Zyloprim] 100 mg PO DAILY 03/26/24 03/26/24 Acetaminophen [Tylenol] 650 mg PO Q6H #60 tab 03/27/24 Gabapentin [Neurontin] 100 mg PO Q8HR PRN 3 Days #10 cap 03/27/24 oxyCODONE [Roxicodone] 5 mg PO Q4HR PRN #10 tab 03/27/24 Home Medications Other | Comments: Tylenol 650 mg orally 4 x a day Gabapentin 100 mg orally 3 x a day - PHYSICAL EXAM AT DISCHARGE General Appearance: positive: No acute distress, Alert Eyes Bilateral: positive: Normal inspection, PERRL ENT: positive: ENT inspection nml, No signs of dehydration Neck: positive: Nml inspection, Trachea midline Respiratory: positive: No respiratory distress, Breath sounds nml, Other (Sternum tender to palpation) Cardiovascular: positive: Regular rate & rhythm, No murmur Peripheral Pulses: positive: 2+ Abdomen: positive: Non-tender, Nml bowel sounds, No distention Skin: positive: Color nml, No rash, Warm Extremities: positive: Other (RUE in sling) Neurologic/Psychiatric: positive: Oriented x3 - LABS Result Diagrams: 03/27/24 04:54 03/27/24 04:54 - DIAGNOSTIC IMAGING Diagnostic Imaging Results: See rad report - QUALITY (Female Hip Fx Only) Was patient sent home on osteoporosis medication?: No - FOLLOW UP Follow Up: 1) FU PCP in 1 week 2) FU Orthopedic clinic in as soon as appointment available"
--- NOTE | 2024-03-27 07:39 | Discharge Plan ---
Discharge Plan Problem Reviewed?: Yes Disposition: Home, Self Care Condition: Good Prescriptions: oxyCODONE [Roxicodone] 5 mg PO Q4HR PRN #10 tab PRN Reason: Pain 5 to 7 Gabapentin [Neurontin] 100 mg PO Q8HR PRN 3 Days #10 cap PRN Reason: Moderate Pain (Level 5-7) Acetaminophen [Tylenol] 650 mg PO Q6H #60 tab Diet: Regular Activity Restrictions: Keep right arm in sling Shower Restrictions: No (May remove sling to shower.) Driving Restrictions: Yes Instruction Topics: ED Fx Rib Health Concerns: Please see your PCP regarding your Warfarin dosage as it likely needs adjustment in the buttermaker continuous churn Assessment: GLF with: 1) Bilateral rib fractures 2-5 - stable 2) Non-displaced, closed sternal fracture - stable 3) Closed right radial head fracture 4) Supratherapeutic INR - resolving 5) Transient, now resolved PRESTON Additional Instructions or Follow Up instructions: Call the General Surgery Clinic with questions or concerns ([phone]) No Smoking: If you smoke, Please STOP! Call for help.
[2024-03-27 09:59] VITALS: BP 122/79; O2SAT 91
== END 2024-03-27 11:41 | disposition home or self-care (01) | DRG 948 ==
LOC: ED 16:25 → MS2 21:15
PROVIDERS: ADMIT Surgery; ATTEND Surgery
DX: G89.11 Acute pain due to trauma (principal); S22.43XA Multiple fractures of ribs, bilateral, initial encounter for closed fracture; S22.22XA Fracture of body of sternum, initial encounter for closed fracture; N17.9 Acute kidney failure, unspecified; S00.83XA Contusion of other part of head, initial encounter; S52.121A Displaced fracture of head of right radius, initial encounter for closed fracture; W01.0XXA Fall on same level from slipping, tripping and stumbling without subsequent striking against object, initial encounter; R79.1 Abnormal coagulation profile; I48.91 Unspecified atrial fibrillation; Z79.01 Long term (current) use of anticoagulants
CPT/HCPCS: 36415; 70450; 71250; 72125; 73070; 73090; 73110; 74176; 80048; 80053; 83690; 83735; 84100; 84484; 85025; 85610; 93005; 97166; 99285; A9270; J7120

== ENCOUNTER 2024-03-28 08:00 | Outpatient (CLI) | payer MEDICARE | END 2024-03-28 08:01 | disposition home or self-care (01) | LOC: LAB 08:00 | PROVIDERS: ATTEND Internal Medicine Cardiovascular Disease | DX: I48.19 Other persistent atrial fibrillation (principal); D68.69 Other thrombophilia; Z51.81 Encounter for therapeutic drug level monitoring; Z79.01 Long term (current) use of anticoagulants | CPT/HCPCS: 36416; 85610 ==

== ENCOUNTER 2024-04-03 11:59 | Outpatient (CLI) | payer MEDICARE ==
--- NOTE | 2024-04-05 10:23 | XRAY Report ---
PROCEDURE: Elbow 3+V RT INDICATIONS: R ELBOW PAIN TECHNIQUE: 3 views of the elbow were acquired. COMPARISON: 03/25/2024 FINDINGS: Bones: Radial neck fracture with remodeling and increase in sclerosis. Soft tissues: Persistent but improved joint effusion IMPRESSION: Healing nondisplaced radial neck fracture Reviewed by: Benito Martinez MD on 04/05/2024 9:22 AM MALATHI Approved by: Benito Martinez MD on 04/05/2024 9:22 AM [email or web address] Station ID: [id number]
== END 2024-04-03 12:00 | disposition home or self-care (01) ==
LOC: DI 11:59
PROVIDERS: ATTEND Orthopaedic Surgery
DX: S52.134D Nondisplaced fracture of neck of right radius, subsequent encounter for closed fracture with routine healing (principal)

== ENCOUNTER 2024-04-04 08:05 | Outpatient (CLI) | payer MEDICARE | END 2024-04-04 08:06 | disposition home or self-care (01) | LOC: LAB 08:05 | PROVIDERS: ATTEND Internal Medicine Cardiovascular Disease | DX: I48.19 Other persistent atrial fibrillation (principal); D68.69 Other thrombophilia; Z51.81 Encounter for therapeutic drug level monitoring; Z79.01 Long term (current) use of anticoagulants | CPT/HCPCS: 36416; 85610 ==